=== PATIENT | male | born 1935 ===

== ENCOUNTER 2019-07-19 14:19 | Inpatient (IN) ==
[2019-07-19] MEDS ORDERED: cefTRIAXone 1,000 MG in Water for inj. (sterile) 10 ML IVP ONE (14:35)
[2019-07-19] MEDS ORDERED: Isovue-370 500 ML BOTTLE IVP ONE (14:35)
[2019-07-19] MEDS ORDERED: 0.9 % Sodium Chloride 1,000 ML IVC ONE (14:36)
[2019-07-19 15:15] LABS: VBG HCO3 25 mEq/L (21-27); VBG PCO2 46 mmHg (41-51); VBG PH 7.33 pH Units (7.32-7.42); VBG PO2 43 mmHg (25-50)
[2019-07-19 15:32] LABS: Basophils # 0.1 K/mcL (0.0-0.2); Basophils % 0.3 %; Eosinophils % 0.1 %; Hematocrit 33.4 % (37.5-50.1); Hemoglobin 10.9 g/dL (12.9-16.9); Immature Granulocytes % 0.6 % (0-4); Lymphocytes # 1.8 K/mcL (0.6-4.6); Mean Corpuscular HGB Conc 32.6 g/dL (31.6-35.5); Mean Corpuscular Hemoglobin 31.1 pg (28.0-33.3); Mean Corpuscular Volume 95.4 fL (83.0-100.0); Mean Platelet Volume 10.1 fL (9.4-12.4); Monocytes # 1.3 K/mcL (0.0-1.3); Monocytes % 5.1 %; Neutrophils # 21.8 K/mcL (1.6-8.9); Platelet Count 376 K/mcL (140-400); Red Cell Distribution Width 13.2 % (11.5-14.5); Segmented Neutrophils % 86.9 %; White Blood Count 25.1 K/mcL (4.3-11.1)
[2019-07-19 15:36] LABS: Platelet Estimate Normal (Normal)
[2019-07-19 15:42] LABS: BUN/Creatinine Ratio 32 (6-26); Blood Urea Nitrogen 37 mg/dL (8-23); Calcium 8.7 mg/dL (8.6-10.3); Carbon Dioxide 23 mEq/L (23-29); Chloride 102 mEq/L (98-107); Glucose 176 mg/dL (70-105); Osmolality,Calculated 305 (280-300); Potassium 3.7 mEq/L (3.5-5.1); Sodium 141 mEq/L (136-145); eGFR For African Americans > 60 (> 60); eGFR For Non-African Americans > 60 (> 60)
[2019-07-19 16:10] LABS: C-Reactive Protein 152 mg/L (Less than 10)
[2019-07-19] MEDS ORDERED: 0.9 % Sodium Chloride 500 ML IVC ONE (17:16)
[2019-07-19] MEDS ORDERED: Clindamycin 900 MG/50 ML 900 MG/50 ML IV.SOLN IVPB ONE (17:20)
[2019-07-19] MEDS ORDERED: Naloxone 0.4 MG/ML INJ IVP PRN ×2 (18:01→20:43)
[2019-07-19] MEDS ORDERED: Dextrose Gel 15 GM/37.5 ML TUBE PO PRN ×4 (18:09→20:43)
[2019-07-19] MEDS ORDERED: D5% in Water 1,000 ML IVC PRN ×2 (18:09→20:43)
[2019-07-19] MEDS ORDERED: *HR* Dextrose 50 % in Water (Syg) 50 ML SYRINGE IVP PRN ×2 (18:09→20:43)
[2019-07-19] MEDS ORDERED: *HR* Metoprolol 5 MG/5 ML VIAL IVP PRN (18:14)
[2019-07-19] MEDS ORDERED: 0.9 % Sodium Chloride 1,000 ML IVC SCH (18:15)
[2019-07-19] MEDS ORDERED: *HR* Propofol 200 MG/20 ML VIAL IVP ONE (19:13)
[2019-07-19] MEDS ORDERED: Lidocaine -MPF 2% 2 ML VIAL ONE (19:30)
[2019-07-19 20:20] LABS: Estimated Average Glucose 143 mg/dl
[2019-07-19] MEDS ORDERED: Insulin LISPRO 300 UNITS/3 ML VIAL SQ SCH (21:00)
[2019-07-19] MEDS: Insulin LISPRO 300 UNITS/3 ML VIAL SQ SCH (22:39)
[2019-07-19] MEDS: 0.9 % Sodium Chloride 1,000 ML IVC SCH (23:50)
[2019-07-19] MEDS: Clindamycin 600 MG/50 ML 600 MG/50 ML IV.SOLN IVPB SCH (23:51)
[2019-07-20] MEDS ORDERED: Piperacillin/Tazobactam 3.375 GM in 0.9 % Sodium Chloride Mini Bag 100 ML IVPB SCH
[2019-07-20] MEDS ORDERED: Clindamycin 600 MG/50 ML 600 MG/50 ML IV.SOLN IVPB SCH
[2019-07-20] MEDS: Piperacillin/Tazobactam 3.375 GM in 0.9 % Sodium Chloride Mini Bag 100 ML IVPB SCH ×3 (01:05→18:30)
[2019-07-20] MEDS: *HR* OxyCODONE Immed Rel 5 MG TABLET PO PRN (04:52)
[2019-07-20] MEDS ORDERED: *HR* Heparin 5,000 UNIT/ML VIAL SQ SCH (06:00)
[2019-07-20 06:08] LABS: Basophils # 0.1 K/mcL (0.0-0.2); Basophils % 0.3 %; Eosinophils # 0.1 K/mcL (0.0-0.6); Eosinophils % 0.3 %; Hematocrit 29.3 % (37.5-50.1); Hemoglobin 9.4 g/dL (12.9-16.9); Immature Granulocytes % 0.8 % (0-4); Lymphocytes # 1.1 K/mcL (0.6-4.6); Lymphocytes % 6.2 %; Mean Corpuscular HGB Conc 32.1 g/dL (31.6-35.5); Mean Corpuscular Hemoglobin 30.7 pg (28.0-33.3); Mean Corpuscular Volume 95.8 fL (83.0-100.0); Mean Platelet Volume 10.1 fL (9.4-12.4); Monocytes # 0.7 K/mcL (0.0-1.3); Monocytes % 3.9 %; Neutrophils # 16.1 K/mcL (1.6-8.9); Platelet Count 326 K/mcL (140-400); Red Blood Count 3.06 M/mcL (4.19-5.50); Red Cell Distribution Width 13.2 % (11.5-14.5); Segmented Neutrophils % 88.5 %; White Blood Count 18.2 K/mcL (4.3-11.1)
[2019-07-20 06:24] LABS: BUN/Creatinine Ratio 31 (6-26); Blood Urea Nitrogen 27 mg/dL (8-23); Calcium 7.9 mg/dL (8.6-10.3); Carbon Dioxide 24 mEq/L (23-29); Chloride 107 mEq/L (98-107); Glucose 113 mg/dL (70-105); Magnesium 1.5 mg/dL (1.6-2.6); Osmolality,Calculated 296 (280-300); Phosphorous 1.6 mg/dL (2.7-4.5); Potassium 3.5 mEq/L (3.5-5.1); Sodium 140 mEq/L (136-145); eGFR For African Americans > 60 (> 60); eGFR For Non-African Americans > 60 (> 60)
[2019-07-20] MEDS ORDERED: Insulin LISPRO 300 UNITS/3 ML VIAL SQ SCH (07:30)
[2019-07-20] MEDS: *HR* Heparin 5,000 UNIT/ML VIAL SQ SCH ×2 (08:05→18:27)
[2019-07-20] MEDS: Insulin LISPRO 300 UNITS/3 ML VIAL SQ SCH ×4 (08:05→20:27)
[2019-07-20] MEDS: Clindamycin 600 MG/50 ML 600 MG/50 ML IV.SOLN IVPB SCH ×2 (08:07→18:27)
[2019-07-20] MEDS: DilTIAZem CD (24hr) 120 MG CAP.ER.24H PO SCH (16:01)
[2019-07-20] MEDS: Budesonide/Formoterol 80/4.5 1 PUFF INH IH SCH (19:41)
[2019-07-21] MEDS: Clindamycin 600 MG/50 ML 600 MG/50 ML IV.SOLN IVPB SCH ×2 (01:24→10:37)
[2019-07-21] MEDS: Piperacillin/Tazobactam 3.375 GM in 0.9 % Sodium Chloride Mini Bag 100 ML IVPB SCH ×4 (01:24→23:31)
[2019-07-21] MEDS: 0.9 % Sodium Chloride 1,000 ML IVC SCH ×3 (01:25→22:49)
[2019-07-21 06:15] LABS: Basophils # 0.1 K/mcL (0.0-0.2); Basophils % 0.3 %; Eosinophils # 0.1 K/mcL (0.0-0.6); Eosinophils % 0.7 %; Hematocrit 27.5 % (37.5-50.1); Hemoglobin 8.9 g/dL (12.9-16.9); Immature Granulocytes % 0.8 % (0-4); Lymphocytes # 1.6 K/mcL (0.6-4.6); Lymphocytes % 8.9 %; Mean Corpuscular HGB Conc 32.4 g/dL (31.6-35.5); Mean Corpuscular Hemoglobin 30.8 pg (28.0-33.3); Mean Corpuscular Volume 95.2 fL (83.0-100.0); Monocytes # 0.8 K/mcL (0.0-1.3); Monocytes % 4.6 %; Neutrophils # 15.1 K/mcL (1.6-8.9); Platelet Count 341 K/mcL (140-400); Red Blood Count 2.89 M/mcL (4.19-5.50); Red Cell Distribution Width 13.2 % (11.5-14.5); Segmented Neutrophils % 84.7 %; White Blood Count 17.9 K/mcL (4.3-11.1)
[2019-07-21] MEDS: *HR* Heparin 5,000 UNIT/ML VIAL SQ SCH ×2 (07:19→19:43)
[2019-07-21] MEDS: Budesonide/Formoterol 80/4.5 1 PUFF INH IH SCH ×2 (08:11→22:25)
[2019-07-21] MEDS: Tiotropium 18 MCG inhalation IH SCH (08:12)
[2019-07-21] MEDS ORDERED: DILTIAZEM HCL 360 MG PO SCH (09:00)
[2019-07-21 09:34] LABS: % Iron Saturation 11 % (20-55); BUN/Creatinine Ratio 23 (6-26); Blood Urea Nitrogen 17 mg/dL (8-23); Calcium 7.8 mg/dL (8.6-10.3); Carbon Dioxide 21 mEq/L (23-29); Chloride 107 mEq/L (98-107); Glucose 85 mg/dL (70-105); Iron 20 mcg/dL (65-175); Osmolality,Calculated 283 (280-300); Potassium 3.2 mEq/L (3.5-5.1); Sodium 136 mEq/L (136-145); Transferrin 135 mg/dL (203-362); eGFR For African Americans > 60 (> 60); eGFR For Non-African Americans > 60 (> 60)
[2019-07-21 09:38] LABS: Ferritin 239 ng/mL (20-250)
[2019-07-21] MEDS: DilTIAZem CD (24hr) 120 MG CAP.ER.24H PO SCH (10:37)
[2019-07-21] MEDS: Insulin LISPRO 300 UNITS/3 ML VIAL SQ SCH ×4 (10:39→21:05)
[2019-07-21 11:17] LABS: INR 1.4; Prothrombin Time 16.3 Seconds (9.4-12.1)
[2019-07-21 11:19] LABS: Activated Partial Thrombo Time 33.4 Seconds (26.0-36.0)
[2019-07-21] MEDS ORDERED: *HR* Heparin 10,000 UNIT/10 ML VIAL ONE (13:51)
[2019-07-21] MEDS ORDERED: Isovue-300 150 ML INFUS..BTL ONE ×2 (13:52→13:56)
[2019-07-21] MEDS ORDERED: 0.9 % Sodium Chloride 1,000 ML ONE ×2 (13:52→15:25)
[2019-07-21] MEDS ORDERED: *HR* FentaNYL (PF) 100 MCG/2 ML VIAL ONE (15:23)
[2019-07-21] MEDS ORDERED: *HR* Midazolam HCl 2 MG/2 ML VIAL ONE (15:24)
[2019-07-21] MEDS ORDERED: Heparin 1,000 UNITS/500 mL 500 ML ONE ×2 (16:06→16:39)
[2019-07-21] MEDS ORDERED: Ondansetron 4 MG/2 ML VIAL IVP PRN (17:14)
[2019-07-21] MEDS ORDERED: Acetaminophen 325 MG TABLET PO PRN (17:14)
[2019-07-21] MEDS ORDERED: *HR* Atropine Sulfate 1 MG/10 ML SYRINGE ONE (19:50)
[2019-07-22] MEDS: *HR* Heparin 5,000 UNIT/ML VIAL SQ SCH ×2 (05:20→18:00)
[2019-07-22] MEDS: Piperacillin/Tazobactam 3.375 GM in 0.9 % Sodium Chloride Mini Bag 100 ML IVPB SCH ×3 (08:09→23:56)
[2019-07-22] MEDS: DilTIAZem CD (24hr) 120 MG CAP.ER.24H PO SCH (08:12)
[2019-07-22] MEDS: Insulin LISPRO 300 UNITS/3 ML VIAL SQ SCH ×4 (09:10→20:25)
[2019-07-22] MEDS: Budesonide/Formoterol 80/4.5 1 PUFF INH IH SCH ×2 (10:16→20:18)
[2019-07-22] MEDS: Tiotropium 18 MCG inhalation IH SCH (10:16)
[2019-07-22 10:33] LABS: Hematocrit 30.7 % (37.5-50.1); Hemoglobin 10.1 g/dL (12.9-16.9); Mean Corpuscular HGB Conc 32.9 g/dL (31.6-35.5); Mean Corpuscular Hemoglobin 30.8 pg (28.0-33.3); Mean Corpuscular Volume 93.6 fL (83.0-100.0); Mean Platelet Volume 10.1 fL (9.4-12.4); Platelet Count 371 K/mcL (140-400); Red Blood Count 3.28 M/mcL (4.19-5.50); Red Cell Distribution Width 13.1 % (11.5-14.5); White Blood Count 14.2 K/mcL (4.3-11.1)
[2019-07-22 10:51] LABS: Blood Urea Nitrogen 10 mg/dL (8-23); Calcium 7.5 mg/dL (8.6-10.3); Carbon Dioxide 23 mEq/L (23-29); Chloride 104 mEq/L (98-107); Glucose 135 mg/dL (70-105); Osmolality,Calculated 283 (280-300); Potassium 3.2 mEq/L (3.5-5.1); Sodium 136 mEq/L (136-145)
[2019-07-22 10:58] LABS: BUN/Creatinine Ratio 14 (6-26); eGFR For African Americans > 60 (> 60); eGFR For Non-African Americans > 60 (> 60)
[2019-07-22 11:05] LABS: Lymphocytes # 1.7 K/mcL (0.6-4.6); Monocytes # 0.6 K/mcL (0.0-1.3); Neutrophils # 11.9 K/mcL (1.6-8.9)
[2019-07-22 11:06] LABS: Platelet Estimate Normal (Normal); Reactive Lymphocytes Present (Not Present)
[2019-07-22] MEDS: 0.9 % Sodium Chloride 1,000 ML IVC SCH ×5 (17:30→18:27)
[2019-07-23 05:35] LABS: Basophils # 0.1 K/mcL (0.0-0.2); Basophils % 0.5 %; Eosinophils # 0.2 K/mcL (0.0-0.6); Eosinophils % 1.9 %; Hematocrit 29.3 % (37.5-50.1); Hemoglobin 9.5 g/dL (12.9-16.9); Immature Granulocytes % 1.6 % (0-4); Lymphocytes # 1.8 K/mcL (0.6-4.6); Mean Corpuscular HGB Conc 32.4 g/dL (31.6-35.5); Mean Corpuscular Volume 92.4 fL (83.0-100.0); Mean Platelet Volume 10.2 fL (9.4-12.4); Monocytes # 0.8 K/mcL (0.0-1.3); Monocytes % 6.2 %; Neutrophils # 9.5 K/mcL (1.6-8.9); Platelet Count 336 K/mcL (140-400); Red Blood Count 3.17 M/mcL (4.19-5.50); Segmented Neutrophils % 75.8 %; White Blood Count 12.5 K/mcL (4.3-11.1)
[2019-07-23 05:41] LABS: BUN/Creatinine Ratio 12 (6-26); Blood Urea Nitrogen 8 mg/dL (8-23); Calcium 7.7 mg/dL (8.6-10.3); Carbon Dioxide 21 mEq/L (23-29); Chloride 106 mEq/L (98-107); Glucose 106 mg/dL (70-105); Osmolality,Calculated 283 (280-300); Potassium 3.7 mEq/L (3.5-5.1); Sodium 137 mEq/L (136-145); eGFR For African Americans > 60 (> 60); eGFR For Non-African Americans > 60 (> 60)
[2019-07-23] MEDS: *HR* Heparin 5,000 UNIT/ML VIAL SQ SCH ×2 (05:50→17:46)
[2019-07-23] MEDS: 0.9 % Sodium Chloride 1,000 ML IVC SCH (05:51)
[2019-07-23 05:54] LABS: Large Platelets Present (Not Present); Platelet Estimate Normal (Normal)
[2019-07-23] MEDS: *HR* OxyCODONE Immed Rel 5 MG TABLET PO PRN (09:02)
[2019-07-23] MEDS: Piperacillin/Tazobactam 3.375 GM in 0.9 % Sodium Chloride Mini Bag 100 ML IVPB SCH ×3 (09:03→23:24)
[2019-07-23] MEDS: Insulin LISPRO 300 UNITS/3 ML VIAL SQ SCH ×4 (09:03→21:05)
[2019-07-23] MEDS: DilTIAZem CD (24hr) 240 MG CAP.ER.24H PO SCH (09:03)
[2019-07-23] MEDS: Budesonide/Formoterol 80/4.5 1 PUFF INH IH SCH ×2 (10:04→20:02)
[2019-07-23] MEDS: Tiotropium 18 MCG inhalation IH SCH (10:05)
[2019-07-23] MEDS ORDERED: Vancomycin 1,000 MG VIAL ONE (17:08)
[2019-07-24] MEDS: *HR* Heparin 5,000 UNIT/ML VIAL SQ SCH ×2 (05:38→16:41)
[2019-07-24] MEDS: Insulin LISPRO 300 UNITS/3 ML VIAL SQ SCH ×4 (07:16→20:48)
[2019-07-24] MEDS: DilTIAZem CD (24hr) 240 MG CAP.ER.24H PO SCH (07:16)
[2019-07-24] MEDS: Piperacillin/Tazobactam 3.375 GM in 0.9 % Sodium Chloride Mini Bag 100 ML IVPB SCH ×2 (07:16→16:40)
[2019-07-24] MEDS: Budesonide/Formoterol 80/4.5 1 PUFF INH IH SCH ×2 (07:50→20:10)
[2019-07-24] MEDS: Tiotropium 18 MCG inhalation IH SCH (07:52)
[2019-07-24] MEDS ORDERED: Lidocaine 1% 20 ML MDV ONE (10:18)
[2019-07-24] MEDS ORDERED: *HR* Propofol 200 MG/20 ML VIAL IVP ONE ×2 (10:48→10:56)
[2019-07-24] MEDS ORDERED: *HR* PHENYLEPHRINE 1,000 MCG/10 ML SYRINGE IVP ONE (11:08)
[2019-07-24] MEDS ORDERED: Dexamethasone 4 MG/ML VIAL ONE (11:22)
[2019-07-24] MEDS ORDERED: Ondansetron 4 MG/2 ML VIAL ONE (11:22)
[2019-07-24] MEDS: *HR* OxyCODONE Immed Rel 5 MG TABLET PO PRN ×2 (13:26→22:51)
[2019-07-25] MEDS: Piperacillin/Tazobactam 3.375 GM in 0.9 % Sodium Chloride Mini Bag 100 ML IVPB SCH ×2 (00:41→08:14)
[2019-07-25] MEDS: *HR* Heparin 5,000 UNIT/ML VIAL SQ SCH ×2 (05:38→19:02)
[2019-07-25 07:36] LABS: Hematocrit 31.1 % (37.5-50.1); Mean Corpuscular HGB Conc 32.2 g/dL (31.6-35.5); Mean Corpuscular Hemoglobin 30.4 pg (28.0-33.3); Mean Corpuscular Volume 94.5 fL (83.0-100.0); Red Blood Count 3.29 M/mcL (4.19-5.50)
[2019-07-25 07:37] LABS: Basophils % 0.2 %; Immature Granulocytes % 1.6 % (0-4); Lymphocytes % 6.9 %; Mean Platelet Volume 10.2 fL (9.4-12.4); Monocytes % 4.8 %; Neutrophils # 18.1 K/mcL (1.6-8.9); Platelet Count 414 K/mcL (140-400); Red Cell Distribution Width 13.2 % (11.5-14.5); Segmented Neutrophils % 86.5 %
[2019-07-25 07:39] LABS: Lymphocytes # 1.4 K/mcL (0.6-4.6); White Blood Count 20.9 K/mcL (4.3-11.1)
[2019-07-25] MEDS: Insulin LISPRO 300 UNITS/3 ML VIAL SQ SCH ×4 (07:47→20:39)
[2019-07-25 07:53] LABS: BUN/Creatinine Ratio 14 (6-26); Blood Urea Nitrogen 18 mg/dL (8-23); Calcium 8.4 mg/dL (8.6-10.3); Carbon Dioxide 25 mEq/L (23-29); Chloride 102 mEq/L (98-107); Glucose 133 mg/dL (70-105); Osmolality,Calculated 286 (280-300); Potassium 4.1 mEq/L (3.5-5.1); Sodium 136 mEq/L (136-145); eGFR For African Americans > 60 (> 60); eGFR For Non-African Americans 55 (> 60)
[2019-07-25] MEDS: DilTIAZem CD (24hr) 240 MG CAP.ER.24H PO SCH (08:14)
[2019-07-25] MEDS: 0.9 % Sodium Chloride 1,000 ML IVC SCH ×2 (09:13→23:38)
[2019-07-25] MEDS: Tiotropium 18 MCG inhalation IH SCH (09:34)
[2019-07-25] MEDS: Budesonide/Formoterol 80/4.5 1 PUFF INH IH SCH ×2 (09:34→20:08)
[2019-07-25] MEDS: *HR* OxyCODONE Immed Rel 5 MG TABLET PO PRN (13:01)
[2019-07-26] MEDS: *HR* Heparin 5,000 UNIT/ML VIAL SQ SCH ×2 (05:48→16:24)
[2019-07-26 07:19] LABS: Hematocrit 29.5 % (37.5-50.1); Hemoglobin 9.5 g/dL (12.9-16.9); Mean Corpuscular HGB Conc 32.2 g/dL (31.6-35.5); Mean Corpuscular Hemoglobin 30.5 pg (28.0-33.3); Mean Corpuscular Volume 94.9 fL (83.0-100.0); Mean Platelet Volume 9.9 fL (9.4-12.4); Platelet Count 400 K/mcL (140-400); Red Blood Count 3.11 M/mcL (4.19-5.50); Red Cell Distribution Width 13.4 % (11.5-14.5); White Blood Count 15.8 K/mcL (4.3-11.1)
[2019-07-26] MEDS: Budesonide/Formoterol 80/4.5 1 PUFF INH IH SCH ×2 (07:35→20:09)
[2019-07-26 07:37] LABS: Calcium 8.6 mg/dL (8.6-10.3); Potassium 3.8 mEq/L (3.5-5.1)
[2019-07-26] MEDS: *HR* OxyCODONE Immed Rel 5 MG TABLET PO PRN ×2 (07:45→16:24)
[2019-07-26] MEDS: DilTIAZem CD (24hr) 240 MG CAP.ER.24H PO SCH (07:45)
[2019-07-26] MEDS: Insulin LISPRO 300 UNITS/3 ML VIAL SQ SCH ×4 (07:45→20:36)
[2019-07-26] MEDS ORDERED: Aminoglycoside Consult 1 EACH MC ONE (09:07)
[2019-07-26] MEDS: Tiotropium 18 MCG inhalation IH SCH (10:48)
[2019-07-26] MEDS ORDERED: 0.9 % Sodium Chloride 1,000 ML ONE (13:15)
[2019-07-26] MEDS: cephALEXin 500 MG CAPSULE PO SCH ×2 (13:19→20:11)
[2019-07-26] MEDS: Doxycycline 100 MG CAPSULE PO SCH ×2 (13:19→20:10)
[2019-07-26] MEDS: 0.9 % Sodium Chloride 1,000 ML IVC SCH (13:19)
[2019-07-26 13:44] LABS: Bilirubin,Urine Negative (Negative); Blood,Urine Negative (Negative); Clarity,Urine Clear (Clear); Color,Urine Yellow (Yellow); Glucose,Urine (UA) Normal (Normal); Ketones,Urine Negative (Negative); Leukocyte Esterase,Urine Negative (Negative); Nitrite,Urine Negative (Negative); PH,Urine 6.5 pH Units (5.0-8.0); Protein,Urine Negative (Neg-Trace); Urobilinogen,Urine Normal (Normal)
[2019-07-27 02:42] LABS: Potassium 3.9 mEq/L (3.5-5.1)
[2019-07-27] MEDS: *HR* Metoprolol 5 MG/5 ML VIAL IVP PRN ×2 (04:09→21:48)
[2019-07-27] MEDS: *HR* Heparin 5,000 UNIT/ML VIAL SQ SCH (05:27)
[2019-07-27] MEDS: Tiotropium 18 MCG inhalation IH SCH (07:32)
[2019-07-27] MEDS: Budesonide/Formoterol 80/4.5 1 PUFF INH IH SCH ×2 (07:32→19:59)
[2019-07-27] MEDS: Insulin LISPRO 300 UNITS/3 ML VIAL SQ SCH ×4 (09:30→21:00)
[2019-07-27] MEDS: DilTIAZem CD (24hr) 240 MG CAP.ER.24H PO SCH (10:48)
[2019-07-27] MEDS: cephALEXin 500 MG CAPSULE PO SCH ×2 (10:48→21:50)
[2019-07-27] MEDS: Doxycycline 100 MG CAPSULE PO SCH ×2 (10:48→21:41)
[2019-07-27] MEDS: 0.9 % Sodium Chloride 1,000 ML IVC SCH ×2 (13:00→21:51)
[2019-07-27] MEDS ORDERED: Pantoprazole 80 MG in 0.9 % Sodium Chloride 50 ML IVPB ONE (13:15)
[2019-07-27] MEDS ORDERED: 0.9 % Sodium Chloride 1,000 ML IVC ONE (13:18)
[2019-07-27 14:04] LABS: Basophils % 0.2 %; Eosinophils % 0.1 %; Hematocrit 31.1 % (37.5-50.1); Hemoglobin 10.2 g/dL (12.9-16.9); Lymphocytes # 1.6 K/mcL (0.6-4.6); Lymphocytes % 9.6 %; Mean Corpuscular HGB Conc 32.8 g/dL (31.6-35.5); Mean Corpuscular Hemoglobin 31.1 pg (28.0-33.3); Mean Corpuscular Volume 94.8 fL (83.0-100.0); Mean Platelet Volume 9.9 fL (9.4-12.4); Monocytes # 0.7 K/mcL (0.0-1.3); Monocytes % 4.2 %; Neutrophils # 13.8 K/mcL (1.6-8.9); Platelet Count 424 K/mcL (140-400); Red Blood Count 3.28 M/mcL (4.19-5.50); Red Cell Distribution Width 13.3 % (11.5-14.5); Segmented Neutrophils % 84.9 %; White Blood Count 16.3 K/mcL (4.3-11.1)
[2019-07-27] MEDS: Pantoprazole 40 MG VIAL IVP SCH (18:43)
[2019-07-27 20:32] LABS: Hematocrit 29.6 % (37.5-50.1); Hemoglobin 9.5 g/dL (12.9-16.9)
[2019-07-28 02:48] LABS: Basophils # 0.1 K/mcL (0.0-0.2); Basophils % 0.3 %; Eosinophils # 0.1 K/mcL (0.0-0.6); Eosinophils % 0.5 %; Hematocrit 26.4 % (37.5-50.1); Hemoglobin 8.6 g/dL (12.9-16.9); Immature Granulocytes % 0.6 % (0-4); Lymphocytes # 2.2 K/mcL (0.6-4.6); Lymphocytes % 14.1 %; Mean Corpuscular HGB Conc 32.6 g/dL (31.6-35.5); Mean Corpuscular Hemoglobin 30.9 pg (28.0-33.3); Mean Platelet Volume 10.2 fL (9.4-12.4); Monocytes # 0.8 K/mcL (0.0-1.3); Monocytes % 5.4 %; Neutrophils # 12.2 K/mcL (1.6-8.9); Platelet Count 370 K/mcL (140-400); Red Blood Count 2.78 M/mcL (4.19-5.50); Red Cell Distribution Width 13.6 % (11.5-14.5); Segmented Neutrophils % 79.1 %; White Blood Count 15.5 K/mcL (4.3-11.1)
[2019-07-28 03:11] LABS: Calcium 8.3 mg/dL (8.6-10.3); Magnesium 1.3 mg/dL (1.6-2.6); Phosphorous 3.4 mg/dL (2.7-4.5); Potassium 3.4 mEq/L (3.5-5.1)
[2019-07-28] MEDS: Pantoprazole 40 MG VIAL IVP SCH ×2 (04:44→17:36)
[2019-07-28] MEDS: 0.9 % Sodium Chloride 1,000 ML IVC SCH ×4 (04:44→20:10)
[2019-07-28] MEDS: *HR* Metoprolol 5 MG/5 ML VIAL IVP PRN (06:22)
[2019-07-28] MEDS: Tiotropium 18 MCG inhalation IH SCH (07:47)
[2019-07-28] MEDS: Budesonide/Formoterol 80/4.5 1 PUFF INH IH SCH ×2 (07:47→20:00)
[2019-07-28] MEDS: Insulin LISPRO 300 UNITS/3 ML VIAL SQ SCH ×4 (09:18→20:37)
[2019-07-28] MEDS: Doxycycline 100 MG CAPSULE PO SCH ×2 (09:21→20:10)
[2019-07-28] MEDS: cephALEXin 500 MG CAPSULE PO SCH (09:22)
[2019-07-28] MEDS: DilTIAZem CD (24hr) 240 MG CAP.ER.24H PO SCH (09:22)
[2019-07-28] MEDS: Potassium Chloride Elixir 20 MEQ/15 ML UDC PO SCH ×2 (11:15→13:48)
[2019-07-29] MEDS: 0.9 % Sodium Chloride 1,000 ML IVC SCH ×2 (05:28→17:25)
[2019-07-29] MEDS: Pantoprazole 40 MG VIAL IVP SCH ×2 (05:28→17:15)
[2019-07-29 06:01] LABS: Basophils # 0.1 K/mcL (0.0-0.2); Basophils % 0.4 %; Eosinophils # 0.2 K/mcL (0.0-0.6); Eosinophils % 1.8 %; Hematocrit 25.9 % (37.5-50.1); Hemoglobin 8.1 g/dL (12.9-16.9); Immature Granulocytes % 0.7 % (0-4); Lymphocytes # 1.8 K/mcL (0.6-4.6); Lymphocytes % 14.9 %; Mean Corpuscular HGB Conc 31.3 g/dL (31.6-35.5); Mean Corpuscular Hemoglobin 29.9 pg (28.0-33.3); Mean Corpuscular Volume 95.6 fL (83.0-100.0); Mean Platelet Volume 9.9 fL (9.4-12.4); Monocytes # 0.7 K/mcL (0.0-1.3); Neutrophils # 9.1 K/mcL (1.6-8.9); Platelet Count 369 K/mcL (140-400); Red Blood Count 2.71 M/mcL (4.19-5.50); Red Cell Distribution Width 13.7 % (11.5-14.5); Segmented Neutrophils % 76.2 %
[2019-07-29 06:21] LABS: BUN/Creatinine Ratio 17 (6-26); Blood Urea Nitrogen 22 mg/dL (8-23); Carbon Dioxide 27 mEq/L (23-29); Chloride 107 mEq/L (98-107); Glucose 106 mg/dL (70-105); Magnesium 1.5 mg/dL (1.6-2.6); Osmolality,Calculated 294 (280-300); Phosphorous 2.3 mg/dL (2.7-4.5); Potassium 3.6 mEq/L (3.5-5.1); Sodium 140 mEq/L (136-145); eGFR For African Americans > 60 (> 60); eGFR For Non-African Americans 55 (> 60)
[2019-07-29] MEDS: Insulin LISPRO 300 UNITS/3 ML VIAL SQ SCH ×4 (07:41→20:57)
[2019-07-29] MEDS: DilTIAZem CD (24hr) 240 MG CAP.ER.24H PO SCH (08:10)
[2019-07-29] MEDS: Doxycycline 100 MG CAPSULE PO SCH ×2 (08:10→20:59)
[2019-07-29] MEDS: Budesonide/Formoterol 80/4.5 1 PUFF INH IH SCH ×2 (10:28→21:36)
[2019-07-29] MEDS: Tiotropium 18 MCG inhalation IH SCH (10:28)
[2019-07-29] MEDS ORDERED: *HR* Propofol 200 MG/20 ML VIAL IVP ONE (12:34)
[2019-07-29] MEDS ORDERED: Lidocaine -MPF 2% 2 ML VIAL ONE (12:34)
[2019-07-29] MEDS ORDERED: EPHEDrine 50 MG/ML VIAL ONE (12:34)
[2019-07-29] MEDS ORDERED: 0.9 % Sodium Chloride 1,000 ML IVC SCH (12:45)
[2019-07-30] MEDS: 0.9 % Sodium Chloride 1,000 ML IVC SCH (02:28)
[2019-07-30] MEDS: Pantoprazole 40 MG VIAL IVP SCH (06:01)
[2019-07-30] MEDS: Insulin LISPRO 300 UNITS/3 ML VIAL SQ SCH ×3 (07:15→12:08)
[2019-07-30] MEDS: Budesonide/Formoterol 80/4.5 1 PUFF INH IH SCH (08:10)
[2019-07-30] MEDS: Tiotropium 18 MCG inhalation IH SCH (08:10)
[2019-07-30] MEDS: Doxycycline 100 MG CAPSULE PO SCH (08:29)
[2019-07-30] MEDS: DilTIAZem CD (24hr) 240 MG CAP.ER.24H PO SCH (08:29)
[2019-07-30 10:00] LABS: Basophils # 0.1 K/mcL (0.0-0.2); Basophils % 0.4 %; Eosinophils # 0.1 K/mcL (0.0-0.6); Eosinophils % 0.8 %; Hemoglobin 8.2 g/dL (12.9-16.9); Immature Granulocytes % 0.4 % (0-4); Lymphocytes # 1.8 K/mcL (0.6-4.6); Lymphocytes % 13.2 %; Mean Corpuscular HGB Conc 31.5 g/dL (31.6-35.5); Mean Corpuscular Hemoglobin 30.4 pg (28.0-33.3); Mean Corpuscular Volume 96.3 fL (83.0-100.0); Mean Platelet Volume 9.9 fL (9.4-12.4); Monocytes # 0.8 K/mcL (0.0-1.3); Monocytes % 5.4 %; Platelet Count 340 K/mcL (140-400); Red Cell Distribution Width 13.9 % (11.5-14.5); Segmented Neutrophils % 79.8 %; White Blood Count 13.8 K/mcL (4.3-11.1)
[2019-07-30 10:17] LABS: BUN/Creatinine Ratio 15 (6-26); Blood Urea Nitrogen 17 mg/dL (8-23); Calcium 7.7 mg/dL (8.6-10.3); Carbon Dioxide 24 mEq/L (23-29); Chloride 108 mEq/L (98-107); Glucose 166 mg/dL (70-105); Magnesium 1.7 mg/dL (1.6-2.6); Osmolality,Calculated 291 (280-300); Phosphorous 1.9 mg/dL (2.7-4.5); Potassium 3.4 mEq/L (3.5-5.1); Sodium 138 mEq/L (136-145); eGFR For African Americans > 60 (> 60); eGFR For Non-African Americans 60 (> 60)
[2019-07-30 14:07] VITALS: BP 115/62
== END 2019-07-30 14:42 | DRG 853 ==
LOC: 3NENU 14:19 → EMEROOARM 14:19 → 3NENU 18:13 → SUATTDRO 18:14 → 3NENU 18:40 → 2NNU 07-21 17:03 → 3ANU 07-28 16:45
PROVIDERS: ADMIT Pharmacist; ATTEND Internal Medicine

== ENCOUNTER 2019-09-23 11:06 | Inpatient (IN) ==
[2019-09-23] MEDS ORDERED: Isovue-370 500 ML BOTTLE IVP ONE ×2 (11:24→11:28)
[2019-09-23 11:45] LABS: Basophils # 0.1 K/mcL (0.0-0.2); Basophils % 0.3 %; Eosinophils # 0.1 K/mcL (0.0-0.6); Eosinophils % 0.3 %; Hematocrit 35.7 % (37.5-50.1); Hemoglobin 11.8 g/dL (12.9-16.9); Immature Granulocytes % 0.5 % (0-4); Lymphocytes # 1.9 K/mcL (0.6-4.6); Lymphocytes % 9.5 %; Mean Corpuscular HGB Conc 33.1 g/dL (31.6-35.5); Mean Corpuscular Hemoglobin 30.4 pg (28.0-33.3); Mean Platelet Volume 10.7 fL (9.4-12.4); Monocytes # 0.7 K/mcL (0.0-1.3); Monocytes % 3.5 %; Neutrophils # 16.7 K/mcL (1.6-8.9); Platelet Count 258 K/mcL (140-400); Red Blood Count 3.88 M/mcL (4.19-5.50); Red Cell Distribution Width 14.1 % (11.5-14.5); Segmented Neutrophils % 85.9 %; White Blood Count 19.4 K/mcL (4.3-11.1)
[2019-09-23] MEDS ORDERED: Ondansetron 4 MG/2 ML VIAL IVP ONE (11:45)
[2019-09-23] MEDS ORDERED: 0.9 % Sodium Chloride 1,000 ML IVC ONE (11:45)
[2019-09-23] MEDS ORDERED: Morphine Sulfate 2 MG/ML SYRINGE IVP ONE (11:46)
[2019-09-23 12:14] LABS: Alanine Aminotransferase 12 Units/L (7-52); Albumin 3.8 g/dL (3.5-5.7); Albumin/Globulin Ratio 1.3 (1.1-2.2); Alkaline Phosphatase 81 Units/L (34-104); Aspartate Amino Transferase 14 Units/L (13-39); BUN/Creatinine Ratio 24 (6-26); Bilirubin,Direct 0.1 mg/dL (0.0-0.2); Bilirubin,Indirect 0.7 mg/dL (0.0-1.0); Bilirubin,Total 0.8 mg/dL (0.3-1.0); Blood Urea Nitrogen 27 mg/dL (8-23); Calcium 9.1 mg/dL (8.6-10.3); Carbon Dioxide 20 mEq/L (23-29); Chloride 106 mEq/L (98-107); Glucose 209 mg/dL (70-105); Magnesium 1.4 mg/dL (1.6-2.6); Osmolality,Calculated 299 (280-300); Potassium 3.7 mEq/L (3.5-5.1); Sodium 139 mEq/L (136-145); Total Protein 6.8 g/dL (6.4-8.9); Troponin I < 0.03 ng/mL (< 0.04); eGFR For African Americans > 60 (> 60); eGFR For Non-African Americans > 60 (> 60)
[2019-09-23 13:09] LABS: Bilirubin,Urine Small (Negative); Blood,Urine Negative (Negative); Clarity,Urine Clear (Clear); Color,Urine Dark Yellow (Yellow); Glucose,Urine (UA) Normal (Normal); Ketones,Urine Trace mg/dL (Negative); Leukocyte Esterase,Urine Negative (Negative); Nitrite,Urine Negative (Negative); PH,Urine 5.5 pH Units (5.0-8.0); Protein,Urine 30 mg/dL (Neg-Trace); Specific Gravity,Urine 1.024 (1.010-1.025); Urobilinogen,Urine Normal (Normal)
[2019-09-23] MEDS ORDERED: 0.9 % Sodium Chloride 1,000 ML IVC STA (13:32)
[2019-09-23 13:34] LABS: Bacteria,Urine None Seen per hpf (None-Few); Hyaline Casts,Urine None Seen per lpf (None-Few); RBC,Urine 0-3 per hpf (0-3); Squamous Epithelial Cell,Urine Many per lpf (None-Few); WBC,Urine 0-3 per hpf (0-3)
[2019-09-23] MEDS ORDERED: Naloxone 0.4 MG/ML INJ IVP PRN (13:58)
[2019-09-23 14:01] LABS: Transitional Epi Cells,Urine Many per hpf (None-Few)
[2019-09-23] MEDS ORDERED: Pantoprazole 40 MG VIAL IVP ONE (14:56)
[2019-09-23] MEDS ORDERED: GI Cocktail 40 ML EACH PO ONE (15:05)
[2019-09-23] MEDS: Ringers Solution, Lactated 1,000 ML IVC SCH (15:21)
[2019-09-23] MEDS ORDERED: *HR* Dextrose 50 % in Water (Syg) 50 ML SYRINGE IVP PRN (15:22)
[2019-09-23] MEDS ORDERED: Dextrose Gel 15 GM/37.5 ML TUBE PO PRN ×2 (15:22)
[2019-09-23] MEDS ORDERED: D5% in Water 1,000 ML IVC PRN (15:22)
[2019-09-23] MEDS: Insulin LISPRO 300 UNITS/3 ML VIAL SQ SCH ×2 (17:13→23:40)
[2019-09-23] MEDS: *HR* Heparin 5,000 UNIT/ML VIAL SQ SCH (17:13)
[2019-09-23] MEDS ORDERED: Ringers Solution, Lactated 500 ML IVC ONE (18:57)
[2019-09-23] MEDS ORDERED: *HR* OxyCODONE/APAP 5/325 TABLET PO PRN (19:05)
[2019-09-24] MEDS: Ringers Solution, Lactated 1,000 ML IVC SCH (00:35)
[2019-09-24] MEDS: Insulin LISPRO 300 UNITS/3 ML VIAL SQ SCH ×4 (05:37→21:59)
[2019-09-24] MEDS: *HR* Heparin 5,000 UNIT/ML VIAL SQ SCH ×2 (05:37→16:54)
[2019-09-24 05:58] LABS: INR 1.2; Prothrombin Time 13.6 Seconds (9.4-12.1)
[2019-09-24 05:59] LABS: Basophils # 0.1 K/mcL (0.0-0.2); Basophils % 0.4 %; Eosinophils # 0.1 K/mcL (0.0-0.6); Hematocrit 27.6 % (37.5-50.1); Immature Granulocytes % 0.4 % (0-4); Lymphocytes # 2.3 K/mcL (0.6-4.6); Lymphocytes % 16.5 %; Mean Corpuscular HGB Conc 32.6 g/dL (31.6-35.5); Mean Platelet Volume 11.1 fL (9.4-12.4); Monocytes # 0.9 K/mcL (0.0-1.3); Monocytes % 6.2 %; Neutrophils # 10.7 K/mcL (1.6-8.9); Platelet Count 209 K/mcL (140-400); Red Cell Distribution Width 14.3 % (11.5-14.5); Segmented Neutrophils % 75.5 %; White Blood Count 14.1 K/mcL (4.3-11.1)
[2019-09-24 06:19] LABS: BUN/Creatinine Ratio 24 (6-26); Blood Urea Nitrogen 21 mg/dL (8-23); Calcium 8.1 mg/dL (8.6-10.3); Carbon Dioxide 24 mEq/L (23-29); Chloride 108 mEq/L (98-107); Glucose 97 mg/dL (70-105); Magnesium 1.9 mg/dL (1.6-2.6); Osmolality,Calculated 289 (280-300); Potassium 3.7 mEq/L (3.5-5.1); Sodium 138 mEq/L (136-145); eGFR For African Americans > 60 (> 60); eGFR For Non-African Americans > 60 (> 60)
[2019-09-24] MEDS: Tiotropium 18 MCG inhalation IH SCH (07:44)
[2019-09-24] MEDS ORDERED: *HR* FentaNYL (PF) 100 MCG/2 ML VIAL ONE (07:54)
[2019-09-24] MEDS ORDERED: *HR* Midazolam HCl 5 MG/5 ML VIAL IVP ONE ×2 (07:54→07:55)
[2019-09-24] MEDS ORDERED: *HR* FentaNYL (PF) 100 MCG/2 ML VIAL IVP ONE (07:55)
[2019-09-24] MEDS ORDERED: Tetracaine/Benzocaine/Butamben 1 SPRAY AEROSOL MM ONE (07:55)
[2019-09-24] MEDS ORDERED: Simethicone 40 MG/0.6 ML MLS IR ONE (07:55)
[2019-09-24] MEDS ORDERED: Aspirin Enteric Coated 81 MG Tablet PO SCH (09:00)
[2019-09-24] MEDS ORDERED: NON-FORMULARY MEDICATION 1 EACH EACH (Tiotropium Bromide [Spiriva Respimat] 2 PUFF) IH SCH (09:00)
[2019-09-24] MEDS: DilTIAZem CD (24hr) 240 MG CAP.ER.24H PO SCH (10:51)
[2019-09-24] MEDS: Piperacillin/Tazobactam 3.375 GM in 0.9 % Sodium Chloride Mini Bag 100 ML IVPB SCH (18:43)
[2019-09-24] MEDS: Sucralfate 1 GM TABLET PO SCH (21:01)
[2019-09-25] MEDS: Piperacillin/Tazobactam 3.375 GM in 0.9 % Sodium Chloride Mini Bag 100 ML IVPB SCH ×3 (01:21→16:12)
[2019-09-25 02:55] LABS: Basophils # 0.1 K/mcL (0.0-0.2); Basophils % 0.3 %; Eosinophils % 0.3 %; Hematocrit 28.6 % (37.5-50.1); Hemoglobin 9.3 g/dL (12.9-16.9); Immature Granulocytes % 0.5 % (0-4); Lymphocytes % 6.7 %; Mean Corpuscular HGB Conc 32.5 g/dL (31.6-35.5); Mean Corpuscular Hemoglobin 29.8 pg (28.0-33.3); Mean Corpuscular Volume 91.7 fL (83.0-100.0); Mean Platelet Volume 10.3 fL (9.4-12.4); Monocytes # 0.3 K/mcL (0.0-1.3); Monocytes % 2.2 %; Neutrophils # 13.8 K/mcL (1.6-8.9); Platelet Count 213 K/mcL (140-400); Red Blood Count 3.12 M/mcL (4.19-5.50); Red Cell Distribution Width 14.3 % (11.5-14.5); White Blood Count 15.3 K/mcL (4.3-11.1)
[2019-09-25 03:18] LABS: % Iron Saturation 5 % (20-55); BUN/Creatinine Ratio 17 (6-26); Blood Urea Nitrogen 15 mg/dL (8-23); Calcium 7.8 mg/dL (8.6-10.3); Carbon Dioxide 21 mEq/L (23-29); Chloride 107 mEq/L (98-107); Glucose 81 mg/dL (70-105); Iron 11 mcg/dL (65-175); Magnesium 1.7 mg/dL (1.6-2.6); Osmolality,Calculated 282 (280-300); Potassium 3.5 mEq/L (3.5-5.1); Sodium 136 mEq/L (136-145); Transferrin 153 mg/dL (203-362); eGFR For African Americans > 60 (> 60); eGFR For Non-African Americans > 60 (> 60)
[2019-09-25 03:34] LABS: Ferritin 116 ng/mL (20-250)
[2019-09-25 04:16] LABS: Vitamin B12 114 pg/mL (250-1100)
[2019-09-25 05:50] LABS: Folate > 22.3 ng/mL (3.0-16.0)
[2019-09-25] MEDS: *HR* Heparin 5,000 UNIT/ML VIAL SQ SCH ×2 (05:51→16:12)
[2019-09-25 07:04] LABS: Estimated Average Glucose 128 mg/dl
[2019-09-25] MEDS: Tiotropium 18 MCG inhalation IH SCH (07:50)
[2019-09-25] MEDS: DilTIAZem CD (24hr) 240 MG CAP.ER.24H PO SCH (09:01)
[2019-09-25] MEDS: Sucralfate 1 GM TABLET PO SCH ×4 (09:01→19:59)
[2019-09-25] MEDS: Insulin LISPRO 300 UNITS/3 ML VIAL SQ SCH ×3 (09:01→16:17)
[2019-09-25] MEDS ORDERED: Haloperidol Lactate 5 MG/ML VIAL IM ONE (20:27)
[2019-09-25] MEDS ORDERED: Insulin LISPRO 300 UNITS/3 ML VIAL SQ SCH (21:00)
[2019-09-26 01:16] LABS: Basophils % 0.5 %; Eosinophils # 0.3 K/mcL (0.0-0.6); Eosinophils % 3.3 %; Hematocrit 28.3 % (37.5-50.1); Hemoglobin 9.2 g/dL (12.9-16.9); Immature Granulocytes % 0.5 % (0-4); Lymphocytes # 1.8 K/mcL (0.6-4.6); Lymphocytes % 21.9 %; Mean Corpuscular HGB Conc 32.5 g/dL (31.6-35.5); Mean Corpuscular Hemoglobin 29.8 pg (28.0-33.3); Mean Corpuscular Volume 91.6 fL (83.0-100.0); Mean Platelet Volume 10.8 fL (9.4-12.4); Monocytes # 0.4 K/mcL (0.0-1.3); Monocytes % 5.3 %; Neutrophils # 5.7 K/mcL (1.6-8.9); Platelet Count 222 K/mcL (140-400); Red Blood Count 3.09 M/mcL (4.19-5.50); Red Cell Distribution Width 14.2 % (11.5-14.5); Segmented Neutrophils % 68.5 %; White Blood Count 8.3 K/mcL (4.3-11.1)
[2019-09-26 01:33] LABS: BUN/Creatinine Ratio 16 (6-26); Blood Urea Nitrogen 16 mg/dL (8-23); Calcium 7.8 mg/dL (8.6-10.3); Carbon Dioxide 25 mEq/L (23-29); Chloride 105 mEq/L (98-107); Glucose 104 mg/dL (70-105); Magnesium 1.6 mg/dL (1.6-2.6); Osmolality,Calculated 283 (280-300); Potassium 3.8 mEq/L (3.5-5.1); Sodium 136 mEq/L (136-145); eGFR For African Americans > 60 (> 60); eGFR For Non-African Americans > 60 (> 60)
[2019-09-26] MEDS: *HR* Heparin 5,000 UNIT/ML VIAL SQ SCH (05:23)
[2019-09-26 06:57] VITALS: BP 106/66
[2019-09-26] MEDS: Tiotropium 18 MCG inhalation IH SCH (07:48)
[2019-09-26] MEDS: Insulin LISPRO 300 UNITS/3 ML VIAL SQ SCH (08:14)
[2019-09-26] MEDS ORDERED: Cyanocobalamin (B-12) 1,000 MCG TABLET PO SCH (09:00)
[2019-09-26] MEDS: Sucralfate 1 GM TABLET PO SCH (09:20)
[2019-09-26] MEDS: DilTIAZem CD (24hr) 240 MG CAP.ER.24H PO SCH (09:23)
== END 2019-09-26 11:44 | disposition home health service (06) | DRG 872 ==
LOC: EMEROOARM 11:06 → 3BNU 11:06 → SUATTDRO 14:04 → 3BNU 14:42
PROVIDERS: ADMIT Internal Medicine; ATTEND Pharmacist
PROC: ENDOEBX (2019-09-24 08:00)

== ENCOUNTER 2019-11-07 13:17 | Inpatient (IN) ==
[2019-11-07 14:46] LABS: Basophils # 0.1 K/mcL (0.0-0.2); Basophils % 0.3 %; Eosinophils % 0.1 %; Hematocrit 38.5 % (37.5-50.1); Hemoglobin 12.3 g/dL (12.9-16.9); Immature Granulocytes % 0.6 % (0-4); Lymphocytes # 1.1 K/mcL (0.6-4.6); Mean Corpuscular HGB Conc 31.9 g/dL (31.6-35.5); Mean Corpuscular Hemoglobin 29.9 pg (28.0-33.3); Mean Corpuscular Volume 93.7 fL (83.0-100.0); Mean Platelet Volume 9.8 fL (9.4-12.4); Monocytes # 0.7 K/mcL (0.0-1.3); Monocytes % 3.5 %; Neutrophils # 18.9 K/mcL (1.6-8.9); Platelet Count 297 K/mcL (140-400); Red Blood Count 4.11 M/mcL (4.19-5.50); Red Cell Distribution Width 13.8 % (11.5-14.5); Segmented Neutrophils % 90.5 %; White Blood Count 20.9 K/mcL (4.3-11.1)
[2019-11-07 15:10] LABS: Magnesium 1.7 mg/dL (1.6-2.6); Phosphorous 2.6 mg/dL (2.7-4.5)
[2019-11-07 15:20] LABS: Alanine Aminotransferase 11 Units/L (7-52); Albumin 4.1 g/dL (3.5-5.7); Albumin/Globulin Ratio 1.2 (1.1-2.2); Alkaline Phosphatase 71 Units/L (34-104); Aspartate Amino Transferase 14 Units/L (13-39); BUN/Creatinine Ratio 25 (6-26); Bilirubin,Total 0.5 mg/dL (0.3-1.0); Blood Urea Nitrogen 24 mg/dL (8-23); Calcium 9.3 mg/dL (8.6-10.3); Carbon Dioxide 26 mEq/L (23-29); Chloride 104 mEq/L (98-107); Globulin 3.4 g/dL (2.4-3.5); Glucose 159 mg/dL (70-105); Lipase 12 Units/L (11-82); Osmolality,Calculated 297 (280-300); Potassium 4.2 mEq/L (3.5-5.1); Sodium 140 mEq/L (136-145); Total Protein 7.5 g/dL (6.4-8.9); eGFR For African Americans > 60 (> 60); eGFR For Non-African Americans > 60 (> 60)
[2019-11-07] MEDS ORDERED: Ondansetron 4 MG/2 ML VIAL ONE (17:17)
[2019-11-07 19:01] LABS: Bilirubin,Urine Negative (Negative); Blood,Urine Large (Negative); Clarity,Urine Cloudy (Clear); Color,Urine Yellow (Yellow); Glucose,Urine (UA) 100 mg/dL (Normal); Ketones,Urine Trace mg/dL (Negative); Leukocyte Esterase,Urine Small (Negative); Nitrite,Urine Negative (Negative); Protein,Urine Trace mg/dL (Neg-Trace); Specific Gravity,Urine 1.017 (1.010-1.025); Urobilinogen,Urine Normal (Normal)
[2019-11-07 19:04] LABS: Bacteria,Urine None Seen per hpf (None-Few); Hyaline Casts,Urine None Seen per lpf (None-Few); RBC,Urine TNTC per hpf (0-3); Squamous Epithelial Cell,Urine Many per lpf (None-Few)
[2019-11-07] MEDS ORDERED: cefTRIAXone 1,000 MG in Water for inj. (sterile) 10 ML IVP STA (20:10)
[2019-11-07] MEDS ORDERED: Ringers Solution, Lactated 1,000 ML IVC ONE (22:06)
[2019-11-07] MEDS ORDERED: Acetaminophen 325 MG TABLET PO PRN (22:57)
[2019-11-07] MEDS ORDERED: Naloxone 0.4 MG/ML INJ IVP PRN (22:57)
[2019-11-07] MEDS ORDERED: Dextrose Gel 15 GM/37.5 ML TUBE PO PRN ×2 (22:57)
[2019-11-07] MEDS ORDERED: D5% in Water 1,000 ML IVC PRN (22:57)
[2019-11-07] MEDS ORDERED: Ondansetron 4 MG/2 ML VIAL IVP PRN (22:57)
[2019-11-07] MEDS ORDERED: *HR* Dextrose 50 % in Water (Syg) 50 ML SYRINGE IVP PRN (22:57)
[2019-11-07] MEDS ORDERED: *HR* OxyCODONE/APAP 5/325 TABLET PO PRN (23:00)
[2019-11-07] MEDS ORDERED: Ipratropium/Albuterol Neb 3 ML IH PRN (23:02)
[2019-11-08] MEDS: Insulin LISPRO 300 UNITS/3 ML VIAL SQ SCH ×5 (00:25→22:04)
[2019-11-08] MEDS ORDERED: *HR* Metoprolol 5 MG/5 ML VIAL IVP ONE (02:11)
[2019-11-08] MEDS ORDERED: *HR* Metoprolol 5 MG/5 ML VIAL IVP PRN (03:30)
[2019-11-08 03:38] LABS: Basophils # 0.1 K/mcL (0.0-0.2); Basophils % 0.3 %; Hematocrit 35.1 % (37.5-50.1); Hemoglobin 11.2 g/dL (12.9-16.9); Immature Granulocytes % 0.6 % (0-4); Lymphocytes # 1.8 K/mcL (0.6-4.6); Lymphocytes % 8.1 %; Mean Corpuscular HGB Conc 31.9 g/dL (31.6-35.5); Mean Corpuscular Hemoglobin 29.9 pg (28.0-33.3); Mean Corpuscular Volume 93.9 fL (83.0-100.0); Mean Platelet Volume 9.9 fL (9.4-12.4); Monocytes # 0.9 K/mcL (0.0-1.3); Monocytes % 3.9 %; Neutrophils # 19.4 K/mcL (1.6-8.9); Platelet Count 345 K/mcL (140-400); Red Blood Count 3.74 M/mcL (4.19-5.50); Red Cell Distribution Width 14.1 % (11.5-14.5); Segmented Neutrophils % 87.1 %; White Blood Count 22.2 K/mcL (4.3-11.1)
[2019-11-08 03:39] LABS: INR 1.1; Prothrombin Time 12.8 Seconds (9.4-12.1)
[2019-11-08 03:57] LABS: BUN/Creatinine Ratio 27 (6-26); Blood Urea Nitrogen 30 mg/dL (8-23); Calcium 9.2 mg/dL (8.6-10.3); Carbon Dioxide 30 mEq/L (23-29); Chloride 99 mEq/L (98-107); Glucose 149 mg/dL (70-105); Magnesium 1.7 mg/dL (1.6-2.6); Osmolality,Calculated 297 (280-300); Phosphorous 3.4 mg/dL (2.7-4.5); Sodium 139 mEq/L (136-145); eGFR For African Americans > 60 (> 60); eGFR For Non-African Americans > 60 (> 60)
[2019-11-08] MEDS ORDERED: cefTRIAXone 1,000 MG in Water for inj. (sterile) 10 ML IVP ONE (06:00)
[2019-11-08] MEDS ORDERED: Pantoprazole 40 MG VIAL IVP SCH (06:00)
[2019-11-08] MEDS: Ringers Solution, Lactated 1,000 ML IVC SCH ×2 (06:05→18:55)
[2019-11-08] MEDS: Pantoprazole 40 MG VIAL IVP SCH ×2 (06:12→17:53)
[2019-11-08] MEDS: Tiotropium 18 MCG inhalation IH SCH (07:57)
[2019-11-08] MEDS ORDERED: DilTIAZem CD (24hr) 240 MG CAP.ER.24H PO SCH (09:00)
[2019-11-08] MEDS: Cyanocobalamin (B-12) 1,000 MCG TABLET PO SCH (09:33)
[2019-11-08] MEDS: Nystatin SUSP 5 ML UD.LIQ PO SCH ×3 (13:36→20:12)
[2019-11-09 01:21] LABS: Basophils % 0.4 %; Hemoglobin 9.7 g/dL (12.9-16.9); Red Cell Distribution Width 14.1 % (11.5-14.5)
[2019-11-09 01:23] LABS: Basophils # 0.1 K/mcL (0.0-0.2); Eosinophils # 0.1 K/mcL (0.0-0.6); Eosinophils % 0.7 %; Hematocrit 31.5 % (37.5-50.1); Immature Granulocytes % 0.4 % (0-4); Immature Platelets 2.9 % (1.1-6.1); Lymphocytes % 14.5 %; Mean Corpuscular HGB Conc 30.8 g/dL (31.6-35.5); Mean Corpuscular Hemoglobin 29.6 pg (28.0-33.3); Mean Platelet Volume 10.7 fL (9.4-12.4); Monocytes # 0.8 K/mcL (0.0-1.3); Monocytes % 4.6 %; Neutrophils # 13.4 K/mcL (1.6-8.9); Nucleated Red Blood Cells 0.1 /100 WBC (0); Platelet Count 256 K/mcL (140-400); Red Blood Count 3.28 M/mcL (4.19-5.50); Segmented Neutrophils % 79.4 %; White Blood Count 16.9 K/mcL (4.3-11.1)
[2019-11-09 01:26] LABS: Blood Urea Nitrogen 23 mg/dL (8-23); Calcium 8.3 mg/dL (8.6-10.3); Carbon Dioxide 26 mEq/L (23-29); Chloride 106 mEq/L (98-107); Glucose 98 mg/dL (70-105); Osmolality,Calculated 292 (280-300); Potassium 3.6 mEq/L (3.5-5.1); Sodium 139 mEq/L (136-145)
[2019-11-09] MEDS: Ringers Solution, Lactated 1,000 ML IVC SCH (01:26)
[2019-11-09 01:40] LABS: BUN/Creatinine Ratio 25 (6-26); eGFR For African Americans > 60 (> 60); eGFR For Non-African Americans > 60 (> 60)
[2019-11-09 01:46] LABS: Lymphocytes # 2.5 K/mcL (0.6-4.6)
[2019-11-09] MEDS: Pantoprazole 40 MG VIAL IVP SCH ×2 (05:34→17:31)
[2019-11-09] MEDS: Tiotropium 18 MCG inhalation IH SCH (07:41)
[2019-11-09] MEDS: Insulin LISPRO 300 UNITS/3 ML VIAL SQ SCH ×6 (10:17→23:47)
[2019-11-09] MEDS: Nystatin SUSP 5 ML UD.LIQ PO SCH ×4 (10:17→21:18)
[2019-11-09] MEDS: cefTRIAXone 1,000 MG in Water for inj. (sterile) 10 ML IVP SCH (10:17)
[2019-11-09] MEDS: Cyanocobalamin (B-12) 1,000 MCG TABLET PO SCH (10:18)
[2019-11-09] MEDS: D5% in 0.9% NACL 1,000 ML IVC SCH (13:23)
[2019-11-09] MEDS ORDERED: Lidocaine -MPF 2% 2 ML VIAL ONE (14:18)
[2019-11-09] MEDS ORDERED: *HR* PHENYLEPHRINE 1,000 MCG/10 ML SYRINGE IVP ONE (14:55)
[2019-11-09] MEDS: *HR* Heparin 5,000 UNIT/ML VIAL SQ SCH (17:31)
[2019-11-10] MEDS: *HR* Heparin 5,000 UNIT/ML VIAL SQ SCH ×2 (06:00→17:37)
[2019-11-10] MEDS: Insulin LISPRO 300 UNITS/3 ML VIAL SQ SCH ×4 (06:00→21:35)
[2019-11-10] MEDS: Pantoprazole 40 MG VIAL IVP SCH ×2 (06:00→17:38)
[2019-11-10 07:24] LABS: Basophils # 0.1 K/mcL (0.0-0.2); Basophils % 0.5 %; Eosinophils # 0.2 K/mcL (0.0-0.6); Hematocrit 29.7 % (37.5-50.1); Hemoglobin 9.3 g/dL (12.9-16.9); Immature Granulocytes % 0.3 % (0-4); Lymphocytes % 19.2 %; Mean Corpuscular HGB Conc 31.3 g/dL (31.6-35.5); Mean Corpuscular Hemoglobin 29.3 pg (28.0-33.3); Mean Corpuscular Volume 93.7 fL (83.0-100.0); Mean Platelet Volume 10.3 fL (9.4-12.4); Monocytes # 0.5 K/mcL (0.0-1.3); Neutrophils # 7.5 K/mcL (1.6-8.9); Platelet Count 250 K/mcL (140-400); Red Blood Count 3.17 M/mcL (4.19-5.50); Red Cell Distribution Width 13.5 % (11.5-14.5); White Blood Count 10.2 K/mcL (4.3-11.1)
[2019-11-10] MEDS: Tiotropium 18 MCG inhalation IH SCH (07:33)
[2019-11-10 07:42] LABS: BUN/Creatinine Ratio 20 (6-26); Blood Urea Nitrogen 16 mg/dL (8-23); Carbon Dioxide 26 mEq/L (23-29); Chloride 106 mEq/L (98-107); Glucose 94 mg/dL (70-105); Magnesium 1.5 mg/dL (1.6-2.6); Osmolality,Calculated 287 (280-300); Phosphorous 1.9 mg/dL (2.7-4.5); Potassium 3.3 mEq/L (3.5-5.1); Sodium 138 mEq/L (136-145); eGFR For African Americans > 60 (> 60); eGFR For Non-African Americans > 60 (> 60)
[2019-11-10] MEDS: cefTRIAXone 1,000 MG in Water for inj. (sterile) 10 ML IVP SCH (09:09)
[2019-11-10] MEDS: Cyanocobalamin (B-12) 1,000 MCG TABLET PO SCH (09:10)
[2019-11-10] MEDS: DilTIAZem CD (24hr) 240 MG CAP.ER.24H PO SCH (09:10)
[2019-11-10] MEDS: Nystatin SUSP 5 ML UD.LIQ PO SCH ×4 (09:10→21:26)
[2019-11-10] MEDS ORDERED: Magnesium Sulfate 1 GM/102 ML PIGGYBACK IVPB ONE (12:26)
[2019-11-10] MEDS ORDERED: Potassium Phosphate 44 MEQ in 0.9 % Sodium Chloride 250 ML IVPB ONE (12:26)
[2019-11-11] MEDS: Insulin LISPRO 300 UNITS/3 ML VIAL SQ SCH ×6 (00:10→20:19)
[2019-11-11] MEDS: *HR* Heparin 5,000 UNIT/ML VIAL SQ SCH ×2 (05:09→17:20)
[2019-11-11] MEDS: Pantoprazole 40 MG VIAL IVP SCH (05:10)
[2019-11-11] MEDS: Tiotropium 18 MCG inhalation IH SCH (07:34)
[2019-11-11] MEDS: Nystatin SUSP 5 ML UD.LIQ PO SCH ×4 (08:17→20:08)
[2019-11-11] MEDS: DilTIAZem CD (24hr) 240 MG CAP.ER.24H PO SCH (08:17)
[2019-11-11] MEDS: Cyanocobalamin (B-12) 1,000 MCG TABLET PO SCH (08:17)
[2019-11-11] MEDS: cefTRIAXone 1,000 MG in Water for inj. (sterile) 10 ML IVP SCH (08:17)
[2019-11-11 08:53] LABS: Basophils # 0.1 K/mcL (0.0-0.2); Basophils % 0.5 %; Eosinophils # 0.2 K/mcL (0.0-0.6); Eosinophils % 2.2 %; Hematocrit 30.9 % (37.5-50.1); Immature Granulocytes % 0.2 % (0-4); Lymphocytes # 2.1 K/mcL (0.6-4.6); Lymphocytes % 22.1 %; Mean Corpuscular HGB Conc 32.4 g/dL (31.6-35.5); Mean Corpuscular Hemoglobin 29.9 pg (28.0-33.3); Mean Corpuscular Volume 92.5 fL (83.0-100.0); Mean Platelet Volume 10.2 fL (9.4-12.4); Monocytes # 0.5 K/mcL (0.0-1.3); Neutrophils # 6.7 K/mcL (1.6-8.9); Platelet Count 305 K/mcL (140-400); Red Blood Count 3.34 M/mcL (4.19-5.50); Red Cell Distribution Width 13.7 % (11.5-14.5); White Blood Count 9.6 K/mcL (4.3-11.1)
[2019-11-11 09:14] LABS: BUN/Creatinine Ratio 17 (6-26); Blood Urea Nitrogen 13 mg/dL (8-23); Carbon Dioxide 26 mEq/L (23-29); Chloride 102 mEq/L (98-107); Glucose 120 mg/dL (70-105); Magnesium 1.7 mg/dL (1.6-2.6); Osmolality,Calculated 281 (280-300); Sodium 135 mEq/L (136-145); eGFR For African Americans > 60 (> 60); eGFR For Non-African Americans > 60 (> 60)
[2019-11-11] MEDS ORDERED: Potassium Phosphate 44 MEQ in 0.9 % Sodium Chloride 250 ML IVPB ONE (13:34)
[2019-11-11] MEDS ORDERED: Potassium Chloride Elixir 20 MEQ/15 ML UDC GTUBE ONE (13:34)
[2019-11-12] MEDS: Insulin LISPRO 300 UNITS/3 ML VIAL SQ SCH ×7 (00:35→23:50)
[2019-11-12] MEDS: *HR* Heparin 5,000 UNIT/ML VIAL SQ SCH ×2 (05:47→18:12)
[2019-11-12] MEDS: Tiotropium 18 MCG inhalation IH SCH (07:48)
[2019-11-12] MEDS: cefTRIAXone 1,000 MG in Water for inj. (sterile) 10 ML IVP SCH (09:28)
[2019-11-12] MEDS: DilTIAZem CD (24hr) 240 MG CAP.ER.24H PO SCH (09:31)
[2019-11-12] MEDS: Nystatin SUSP 5 ML UD.LIQ PO SCH ×4 (09:31→21:15)
[2019-11-12] MEDS: Cyanocobalamin (B-12) 1,000 MCG TABLET PO SCH (09:31)
[2019-11-12 09:52] LABS: Basophils # 0.1 K/mcL (0.0-0.2); Basophils % 0.7 %; Eosinophils # 0.2 K/mcL (0.0-0.6); Eosinophils % 2.2 %; Hematocrit 30.9 % (37.5-50.1); Hemoglobin 9.8 g/dL (12.9-16.9); Immature Granulocytes % 0.4 % (0-4); Lymphocytes # 2.1 K/mcL (0.6-4.6); Lymphocytes % 20.9 %; Mean Corpuscular HGB Conc 31.7 g/dL (31.6-35.5); Mean Corpuscular Hemoglobin 29.6 pg (28.0-33.3); Mean Corpuscular Volume 93.4 fL (83.0-100.0); Mean Platelet Volume 10.4 fL (9.4-12.4); Monocytes # 0.7 K/mcL (0.0-1.3); Monocytes % 6.6 %; Neutrophils # 6.9 K/mcL (1.6-8.9); Platelet Count 326 K/mcL (140-400); Red Blood Count 3.31 M/mcL (4.19-5.50); Red Cell Distribution Width 13.8 % (11.5-14.5); Segmented Neutrophils % 69.2 %
[2019-11-12 10:02] LABS: BUN/Creatinine Ratio 13 (6-26); Blood Urea Nitrogen 10 mg/dL (8-23); Calcium 8.3 mg/dL (8.6-10.3); Carbon Dioxide 25 mEq/L (23-29); Chloride 103 mEq/L (98-107); Glucose 140 mg/dL (70-105); Magnesium 1.6 mg/dL (1.6-2.6); Osmolality,Calculated 281 (280-300); Potassium 3.7 mEq/L (3.5-5.1); Sodium 135 mEq/L (136-145); eGFR For African Americans > 60 (> 60); eGFR For Non-African Americans > 60 (> 60)
[2019-11-12] MEDS: Haloperidol Lactate 5 MG/ML VIAL IVP PRN (15:53)
[2019-11-12] MEDS: D5% in 0.9% NACL 1,000 ML IVC SCH (19:37)
[2019-11-13] MEDS: Insulin LISPRO 300 UNITS/3 ML VIAL SQ SCH ×5 (04:20→21:28)
[2019-11-13 05:07] LABS: BUN/Creatinine Ratio 19 (6-26); Blood Urea Nitrogen 14 mg/dL (8-23); Calcium 8.2 mg/dL (8.6-10.3); Carbon Dioxide 23 mEq/L (23-29); Chloride 105 mEq/L (98-107); Glucose 101 mg/dL (70-105); Magnesium 1.8 mg/dL (1.6-2.6); Osmolality,Calculated 281 (280-300); Phosphorous 2.3 mg/dL (2.7-4.5); Potassium 4.4 mEq/L (3.5-5.1); Sodium 135 mEq/L (136-145); eGFR For African Americans > 60 (> 60); eGFR For Non-African Americans > 60 (> 60)
[2019-11-13] MEDS: *HR* Heparin 5,000 UNIT/ML VIAL SQ SCH ×2 (05:14→17:17)
[2019-11-13] MEDS: Nystatin SUSP 5 ML UD.LIQ PO SCH ×4 (08:35→21:31)
[2019-11-13] MEDS: Cyanocobalamin (B-12) 1,000 MCG TABLET PO SCH (08:36)
[2019-11-13] MEDS: cefTRIAXone 1,000 MG in Water for inj. (sterile) 10 ML IVP SCH (08:36)
[2019-11-13] MEDS: DilTIAZem CD (24hr) 240 MG CAP.ER.24H PO SCH (08:36)
[2019-11-13] MEDS: Tiotropium 18 MCG inhalation IH SCH (09:17)
[2019-11-14] MEDS: Insulin LISPRO 300 UNITS/3 ML VIAL SQ SCH ×6 (00:14→21:53)
[2019-11-14] MEDS: *HR* Heparin 5,000 UNIT/ML VIAL SQ SCH ×2 (05:19→16:34)
[2019-11-14 07:26] LABS: Basophils # 0.1 K/mcL (0.0-0.2); Basophils % 0.6 %; Eosinophils # 0.3 K/mcL (0.0-0.6); Eosinophils % 2.8 %; Hematocrit 29.2 % (37.5-50.1); Hemoglobin 9.2 g/dL (12.9-16.9); Immature Granulocytes % 0.5 % (0-4); Lymphocytes # 2.3 K/mcL (0.6-4.6); Lymphocytes % 22.2 %; Mean Corpuscular HGB Conc 31.5 g/dL (31.6-35.5); Mean Corpuscular Hemoglobin 29.7 pg (28.0-33.3); Mean Corpuscular Volume 94.2 fL (83.0-100.0); Mean Platelet Volume 10.5 fL (9.4-12.4); Monocytes # 0.7 K/mcL (0.0-1.3); Monocytes % 6.6 %; Neutrophils # 7.1 K/mcL (1.6-8.9); Platelet Count 293 K/mcL (140-400); Red Cell Distribution Width 14.1 % (11.5-14.5); Segmented Neutrophils % 67.3 %; White Blood Count 10.5 K/mcL (4.3-11.1)
[2019-11-14 07:47] LABS: BUN/Creatinine Ratio 21 (6-26); Blood Urea Nitrogen 18 mg/dL (8-23); Calcium 8.4 mg/dL (8.6-10.3); Carbon Dioxide 28 mEq/L (23-29); Chloride 103 mEq/L (98-107); Glucose 113 mg/dL (70-105); Osmolality,Calculated 285 (280-300); Potassium 3.9 mEq/L (3.5-5.1); Sodium 136 mEq/L (136-145); eGFR For African Americans > 60 (> 60); eGFR For Non-African Americans > 60 (> 60)
[2019-11-14] MEDS: Tiotropium 18 MCG inhalation IH SCH (07:52)
[2019-11-14] MEDS: cefTRIAXone 1,000 MG in Water for inj. (sterile) 10 ML IVP SCH (08:10)
[2019-11-14] MEDS: DilTIAZem CD (24hr) 240 MG CAP.ER.24H PO SCH (08:12)
[2019-11-14] MEDS: Cyanocobalamin (B-12) 1,000 MCG TABLET PO SCH (08:12)
[2019-11-14] MEDS: Nystatin SUSP 5 ML UD.LIQ PO SCH ×4 (08:12→21:53)
[2019-11-14] MEDS: Haloperidol Lactate 5 MG/ML VIAL IVP PRN (23:54)
[2019-11-15 06:04] LABS: BUN/Creatinine Ratio 24 (6-26); Blood Urea Nitrogen 18 mg/dL (8-23); Calcium 8.6 mg/dL (8.6-10.3); Carbon Dioxide 26 mEq/L (23-29); Chloride 107 mEq/L (98-107); Glucose 104 mg/dL (70-105); Osmolality,Calculated 290 (280-300); Phosphorous 1.9 mg/dL (2.7-4.5); Potassium 4.3 mEq/L (3.5-5.1); Sodium 139 mEq/L (136-145); eGFR For African Americans > 60 (> 60); eGFR For Non-African Americans > 60 (> 60)
[2019-11-15] MEDS: *HR* Heparin 5,000 UNIT/ML VIAL SQ SCH ×2 (06:24→17:43)
[2019-11-15] MEDS: Insulin LISPRO 300 UNITS/3 ML VIAL SQ SCH ×6 (06:29→21:03)
[2019-11-15] MEDS: Tiotropium 18 MCG inhalation IH SCH (07:44)
[2019-11-15] MEDS: Cyanocobalamin (B-12) 1,000 MCG TABLET PO SCH (08:26)
[2019-11-15] MEDS: Nystatin SUSP 5 ML UD.LIQ PO SCH ×4 (08:26→21:13)
[2019-11-15] MEDS: DilTIAZem CD (24hr) 240 MG CAP.ER.24H PO SCH (08:26)
[2019-11-15] MEDS ORDERED: QUEtiapine Fumarate 25 MG TABLET PO SCH (21:00)
[2019-11-16] MEDS: Insulin LISPRO 300 UNITS/3 ML VIAL SQ SCH ×7 (00:01→23:53)
[2019-11-16] MEDS: *HR* Heparin 5,000 UNIT/ML VIAL SQ SCH ×2 (05:49→17:22)
[2019-11-16] MEDS: Tiotropium 18 MCG inhalation IH SCH (07:36)
[2019-11-16 07:53] LABS: BUN/Creatinine Ratio 24 (6-26); Blood Urea Nitrogen 17 mg/dL (8-23); Calcium 8.7 mg/dL (8.6-10.3); Carbon Dioxide 26 mEq/L (23-29); Chloride 107 mEq/L (98-107); Glucose 105 mg/dL (70-105); Magnesium 2.1 mg/dL (1.6-2.6); Osmolality,Calculated 292 (280-300); Phosphorous 2.6 mg/dL (2.7-4.5); Sodium 140 mEq/L (136-145); eGFR For African Americans > 60 (> 60); eGFR For Non-African Americans > 60 (> 60)
[2019-11-16] MEDS: Cyanocobalamin (B-12) 1,000 MCG TABLET PO SCH (08:50)
[2019-11-16] MEDS: Nystatin SUSP 5 ML UD.LIQ PO SCH ×4 (08:50→20:37)
[2019-11-16] MEDS: DilTIAZem CD (24hr) 240 MG CAP.ER.24H PO SCH (08:50)
[2019-11-16] MEDS: QUEtiapine Fumarate 25 MG TABLET PO SCH (20:37)
[2019-11-17] MEDS: Insulin LISPRO 300 UNITS/3 ML VIAL SQ SCH ×5 (04:53→22:39)
[2019-11-17] MEDS: *HR* Heparin 5,000 UNIT/ML VIAL SQ SCH ×2 (05:20→15:57)
[2019-11-17] MEDS: Tiotropium 18 MCG inhalation IH SCH (08:30)
[2019-11-17] MEDS: Aspirin Enteric Coated 81 MG Tablet PO SCH (08:37)
[2019-11-17] MEDS: DilTIAZem CD (24hr) 240 MG CAP.ER.24H PO SCH (08:37)
[2019-11-17] MEDS: Cyanocobalamin (B-12) 1,000 MCG TABLET PO SCH (08:37)
[2019-11-17] MEDS: Nystatin SUSP 5 ML UD.LIQ PO SCH ×4 (08:38→22:41)
[2019-11-17] MEDS: QUEtiapine Fumarate 25 MG TABLET PO SCH (22:46)
[2019-11-18] MEDS: Insulin LISPRO 300 UNITS/3 ML VIAL SQ SCH ×5 (00:39→12:22)
[2019-11-18] MEDS: *HR* Heparin 5,000 UNIT/ML VIAL SQ SCH (05:56)
[2019-11-18] MEDS: DilTIAZem CD (24hr) 240 MG CAP.ER.24H PO SCH (09:31)
[2019-11-18] MEDS: Cyanocobalamin (B-12) 1,000 MCG TABLET PO SCH (09:31)
[2019-11-18] MEDS: Aspirin Enteric Coated 81 MG Tablet PO SCH (09:31)
[2019-11-18] MEDS: Nystatin SUSP 5 ML UD.LIQ PO SCH ×2 (09:33→12:13)
[2019-11-18] MEDS: Tiotropium 18 MCG inhalation IH SCH (10:07)
[2019-11-18 16:08] VITALS: BP 104/64
== END 2019-11-18 18:25 | DRG 380 ==
LOC: EMEROOARM 13:17 → 3ANU 13:17 → SUATTDRO 20:40 → 3ANU 23:33 → SUATTDRO 11-08 12:49
PROVIDERS: ADMIT Student in an Organized Health Care Education/Training Program; ATTEND Internal Medicine

== ENCOUNTER 2019-11-23 06:55 | Inpatient (IN) ==
[2019-11-23] MEDS ORDERED: Pantoprazole 40 MG VIAL IVP ONE (07:27)
[2019-11-23 08:04] LABS: Basophils % 0.2 %; Hemoglobin 6.5 g/dL (12.9-16.9); Lymphocytes % 5.8 %
[2019-11-23 08:09] LABS: INR 1.1; Prothrombin Time 12.3 Seconds (9.4-12.1)
[2019-11-23 08:12] LABS: Activated Partial Thrombo Time 27.5 Seconds (26.0-36.0)
[2019-11-23 08:16] LABS: Hematocrit 20.8 % (37.5-50.1); Immature Granulocytes % 1.2 % (0-4); Lymphocytes # 1.3 K/mcL (0.6-4.6); Mean Corpuscular HGB Conc 31.3 g/dL (31.6-35.5); Mean Corpuscular Hemoglobin 30.8 pg (28.0-33.3); Mean Corpuscular Volume 98.6 fL (83.0-100.0); Mean Platelet Volume 11.4 fL (9.4-12.4); Monocytes % 4.7 %; Neutrophils # 19.7 K/mcL (1.6-8.9); Platelet Count 264 K/mcL (140-400); Red Blood Count 2.11 M/mcL (4.19-5.50); Red Cell Distribution Width 14.2 % (11.5-14.5); Segmented Neutrophils % 88.1 %; White Blood Count 22.3 K/mcL (4.3-11.1)
[2019-11-23 08:28] LABS: Alanine Aminotransferase 11 Units/L (7-52); Albumin/Globulin Ratio 1.2 (1.1-2.2); Alkaline Phosphatase 54 Units/L (34-104); Aspartate Amino Transferase 12 Units/L (13-39); BUN/Creatinine Ratio 70 (6-26); Bilirubin,Total 0.2 mg/dL (0.3-1.0); Blood Urea Nitrogen 69 mg/dL (8-23); Calcium 8.2 mg/dL (8.6-10.3); Carbon Dioxide 19 mEq/L (23-29); Chloride 102 mEq/L (98-107); Globulin 2.5 g/dL (2.4-3.5); Glucose 272 mg/dL (70-105); Lipase 13 Units/L (11-82); Osmolality,Calculated 310 (280-300); Potassium 4.8 mEq/L (3.5-5.1); Sodium 135 mEq/L (136-145); Total Protein 5.5 g/dL (6.4-8.9); Troponin I < 0.03 ng/mL (< 0.04); eGFR For African Americans > 60 (> 60); eGFR For Non-African Americans > 60 (> 60)
[2019-11-23] MEDS ORDERED: Ondansetron ODT 4 MG TAB.RAPDIS SL PRN (09:36)
[2019-11-23] MEDS ORDERED: Naloxone 0.4 MG/ML INJ IVP PRN (09:36)
[2019-11-23] MEDS ORDERED: 0.9 % Sodium Chloride 500 ML ONE ×2 (10:15→13:41)
[2019-11-23] MEDS ORDERED: D5% in Water 1,000 ML IVC PRN (10:27)
[2019-11-23] MEDS ORDERED: *HR* Dextrose 50 % in Water (Vial) 50 ML VIAL IVP PRN (10:27)
[2019-11-23] MEDS ORDERED: Dextrose Gel 15 GM/37.5 ML TUBE PO PRN ×2 (10:27)
[2019-11-23] MEDS: Insulin LISPRO 300 UNITS/3 ML VIAL SQ SCH ×2 (14:07→17:50)
[2019-11-23] MEDS: Sucralfate 1 GM TABLET PO SCH ×3 (14:08→21:02)
[2019-11-23] MEDS: 0.9 % Sodium Chloride 1,000 ML IVC SCH (17:30)
[2019-11-23] MEDS: Pantoprazole 40 MG VIAL IVP SCH (17:32)
[2019-11-23 18:53] LABS: Hemoglobin 9.2 g/dL (12.9-16.9)
[2019-11-23] MEDS: QUEtiapine Fumarate 25 MG TABLET PO SCH (21:02)
[2019-11-24] MEDS: Insulin LISPRO 300 UNITS/3 ML VIAL SQ SCH ×4 (00:23→18:04)
[2019-11-24 01:37] LABS: Basophils # 0.1 K/mcL (0.0-0.2); Basophils % 0.5 %; Eosinophils # 0.1 K/mcL (0.0-0.6); Eosinophils % 0.9 %; Hematocrit 26.2 % (37.5-50.1); Hemoglobin 8.6 g/dL (12.9-16.9); Immature Granulocytes % 0.4 % (0-4); Lymphocytes # 2.9 K/mcL (0.6-4.6); Lymphocytes % 22.4 %; Mean Corpuscular HGB Conc 32.8 g/dL (31.6-35.5); Mean Corpuscular Volume 91.3 fL (83.0-100.0); Mean Platelet Volume 11.1 fL (9.4-12.4); Monocytes # 0.7 K/mcL (0.0-1.3); Monocytes % 5.8 %; Platelet Count 264 K/mcL (140-400); Red Blood Count 2.87 M/mcL (4.19-5.50); Red Cell Distribution Width 14.8 % (11.5-14.5); White Blood Count 12.8 K/mcL (4.3-11.1)
[2019-11-24 01:52] LABS: BUN/Creatinine Ratio 63 (6-26); Blood Urea Nitrogen 52 mg/dL (8-23); Calcium 7.9 mg/dL (8.6-10.3); Carbon Dioxide 25 mEq/L (23-29); Chloride 106 mEq/L (98-107); Glucose 98 mg/dL (70-105); Magnesium 1.8 mg/dL (1.6-2.6); Osmolality,Calculated 300 (280-300); Phosphorous 2.8 mg/dL (2.7-4.5); Sodium 138 mEq/L (136-145); eGFR For African Americans > 60 (> 60); eGFR For Non-African Americans > 60 (> 60)
[2019-11-24] MEDS: Pantoprazole 40 MG VIAL IVP SCH ×2 (05:36→18:04)
[2019-11-24] MEDS: DilTIAZem CD (24hr) 240 MG CAP.ER.24H PO SCH (08:30)
[2019-11-24] MEDS: Cyanocobalamin (B-12) 1,000 MCG TABLET PO SCH (08:31)
[2019-11-24] MEDS: Sucralfate 1 GM TABLET PO SCH ×4 (08:31→22:45)
[2019-11-24] MEDS: 0.9 % Sodium Chloride 1,000 ML IVC SCH (20:00)
[2019-11-24 21:30] LABS: Bacteria,Urine Few per hpf (None-Few); Bilirubin,Urine Negative (Negative); Blood,Urine Trace (Negative); Clarity,Urine Clear (Clear); Color,Urine Light-Yellow (Yellow); Glucose,Urine (UA) Normal (Normal); Ketones,Urine Negative (Negative); Leukocyte Esterase,Urine Moderate (Negative); Mucus,Urine Few per lpf (None-Few); Nitrite,Urine Negative (Negative); Protein,Urine Trace mg/dL (Neg-Trace); RBC,Urine 15-30 per hpf (0-3); Urobilinogen,Urine Normal (Normal); WBC,Urine 30-50 per hpf (0-3)
[2019-11-24] MEDS: QUEtiapine Fumarate 25 MG TABLET PO SCH (22:44)
[2019-11-25] MEDS: Pantoprazole 40 MG VIAL IVP SCH ×2 (06:53→18:01)
[2019-11-25] MEDS: Insulin LISPRO 300 UNITS/3 ML VIAL SQ SCH ×4 (06:54→18:26)
[2019-11-25] MEDS: Cyanocobalamin (B-12) 1,000 MCG TABLET PO SCH (09:04)
[2019-11-25] MEDS: Sucralfate 1 GM TABLET PO SCH ×4 (09:04→21:24)
[2019-11-25] MEDS: DilTIAZem CD (24hr) 240 MG CAP.ER.24H PO SCH (09:04)
[2019-11-25 09:23] LABS: BUN/Creatinine Ratio 43 (6-26); Blood Urea Nitrogen 35 mg/dL (8-23); Carbon Dioxide 25 mEq/L (23-29); Chloride 109 mEq/L (98-107); Glucose 167 mg/dL (70-105); Osmolality,Calculated 298 (280-300); Potassium 3.6 mEq/L (3.5-5.1); Sodium 138 mEq/L (136-145); eGFR For African Americans > 60 (> 60); eGFR For Non-African Americans > 60 (> 60)
[2019-11-25 09:30] LABS: Hematocrit 25.2 % (37.5-50.1); Hemoglobin 8.4 g/dL (12.9-16.9); Mean Corpuscular HGB Conc 33.3 g/dL (31.6-35.5); Mean Corpuscular Hemoglobin 30.9 pg (28.0-33.3); Mean Corpuscular Volume 92.6 fL (83.0-100.0); Mean Platelet Volume 10.6 fL (9.4-12.4); Platelet Count 277 K/mcL (140-400); Red Blood Count 2.72 M/mcL (4.19-5.50); Red Cell Distribution Width 14.9 % (11.5-14.5); White Blood Count 8.7 K/mcL (4.3-11.1)
[2019-11-25 16:49] LABS: Bacteria,Urine Few per hpf (None-Few); Bilirubin,Urine Negative (Negative); Blood,Urine Trace (Negative); Budding Yeast,Urine Few per hpf (None Seen); Clarity,Urine Clear (Clear); Color,Urine Yellow (Yellow); Glucose,Urine (UA) Normal (Normal); Ketones,Urine Negative (Negative); Leukocyte Esterase,Urine Large (Negative); Mucus,Urine Few per lpf (None-Few); Nitrite,Urine Negative (Negative); PH,Urine 6.5 pH Units (5.0-8.0); Protein,Urine Trace mg/dL (Neg-Trace); RBC,Urine 15-30 per hpf (0-3); Specific Gravity,Urine 1.022 (1.010-1.025); Squamous Epithelial Cell,Urine Few per hpf (None-Few); Urobilinogen,Urine Normal (Normal); WBC,Urine TNTC per hpf (0-3)
[2019-11-25] MEDS: cefTRIAXone 1,000 MG in Water for inj. (sterile) 10 ML IVP SCH (18:01)
[2019-11-25] MEDS: QUEtiapine Fumarate 25 MG TABLET PO SCH (21:24)
[2019-11-26] MEDS: Insulin LISPRO 300 UNITS/3 ML VIAL SQ SCH ×3 (00:19→13:56)
[2019-11-26] MEDS: Pantoprazole 40 MG VIAL IVP SCH (05:12)
[2019-11-26] MEDS: Sucralfate 1 GM TABLET PO SCH ×2 (09:01→13:57)
[2019-11-26] MEDS: DilTIAZem CD (24hr) 240 MG CAP.ER.24H PO SCH (09:01)
[2019-11-26] MEDS: Cyanocobalamin (B-12) 1,000 MCG TABLET PO SCH (09:01)
[2019-11-26] MEDS: cefTRIAXone 1,000 MG in Water for inj. (sterile) 10 ML IVP SCH (09:01)
[2019-11-26 17:40] VITALS: BP 143/73
== END 2019-11-26 18:30 | DRG 377 ==
LOC: EMEROOARM 06:55 → CDU 06:55 → SUATTDRO 13:06 → 3ANU 16:38
PROVIDERS: ADMIT Internal Medicine; ATTEND Internal Medicine

== ENCOUNTER 2019-11-27 18:01 | Inpatient (IN) ==
[2019-11-27 23:33] LABS: Hematocrit 27.7 % (37.5-50.1); Mean Corpuscular HGB Conc 32.5 g/dL (31.6-35.5); Mean Corpuscular Hemoglobin 30.7 pg (28.0-33.3); Mean Corpuscular Volume 94.5 fL (83.0-100.0); Mean Platelet Volume 9.8 fL (9.4-12.4); Platelet Count 337 K/mcL (140-400); Red Blood Count 2.93 M/mcL (4.19-5.50); Red Cell Distribution Width 14.3 % (11.5-14.5)
[2019-11-27 23:34] LABS: White Blood Count 13.6 K/mcL (4.3-11.1)
[2019-11-27 23:47] LABS: BUN/Creatinine Ratio 30 (6-26); Blood Urea Nitrogen 25 mg/dL (8-23); Calcium 8.5 mg/dL (8.6-10.3); Carbon Dioxide 26 mEq/L (23-29); Chloride 105 mEq/L (98-107); Glucose 88 mg/dL (70-105); Osmolality,Calculated 288 (280-300); Potassium 4.4 mEq/L (3.5-5.1); Sodium 137 mEq/L (136-145); eGFR For African Americans > 60 (> 60); eGFR For Non-African Americans > 60 (> 60)
[2019-11-28] MEDS ORDERED: Naloxone 0.4 MG/ML INJ IVP PRN (01:42)
[2019-11-28] MEDS ORDERED: Dextrose Gel 15 GM/37.5 ML TUBE PO PRN ×2 (02:25)
[2019-11-28] MEDS ORDERED: *HR* Dextrose 50 % in Water (Vial) 50 ML VIAL IVP PRN (02:25)
[2019-11-28] MEDS ORDERED: D5% in Water 1,000 ML IVC PRN (02:25)
[2019-11-28] MEDS ORDERED: Acetaminophen 325 MG TABLET PO PRN (02:38)
[2019-11-28 05:25] LABS: Hematocrit 28.7 % (37.5-50.1); Hemoglobin 9.3 g/dL (12.9-16.9); Mean Corpuscular HGB Conc 32.4 g/dL (31.6-35.5); Mean Corpuscular Hemoglobin 30.6 pg (28.0-33.3); Mean Corpuscular Volume 94.4 fL (83.0-100.0); Mean Platelet Volume 10.1 fL (9.4-12.4); Platelet Count 346 K/mcL (140-400); Red Blood Count 3.04 M/mcL (4.19-5.50); Red Cell Distribution Width 14.5 % (11.5-14.5); White Blood Count 12.3 K/mcL (4.3-11.1)
[2019-11-28 05:45] LABS: BUN/Creatinine Ratio 30 (6-26); Blood Urea Nitrogen 25 mg/dL (8-23); Calcium 8.6 mg/dL (8.6-10.3); Carbon Dioxide 27 mEq/L (23-29); Chloride 105 mEq/L (98-107); Glucose 96 mg/dL (70-105); Osmolality,Calculated 288 (280-300); Potassium 4.3 mEq/L (3.5-5.1); Sodium 137 mEq/L (136-145); eGFR For African Americans > 60 (> 60); eGFR For Non-African Americans > 60 (> 60)
[2019-11-28] MEDS: Insulin LISPRO 300 UNITS/3 ML VIAL SQ SCH ×4 (08:21→20:26)
[2019-11-28] MEDS: Aspirin Enteric Coated 81 MG Tablet PO SCH (08:28)
[2019-11-28] MEDS: DilTIAZem CD (24hr) 240 MG CAP.ER.24H PO SCH (08:28)
[2019-11-28] MEDS: Linezolid 600 MG TABLET PO SCH ×2 (08:28→20:29)
[2019-11-28 13:49] LABS: Basophils # 0.1 K/mcL (0.0-0.2); Basophils % 0.6 %; Eosinophils # 0.2 K/mcL (0.0-0.6); Eosinophils % 1.3 %; Hematocrit 28.4 % (37.5-50.1); Hemoglobin 9.2 g/dL (12.9-16.9); Immature Granulocytes % 0.6 % (0-4); Lymphocytes # 1.9 K/mcL (0.6-4.6); Lymphocytes % 16.2 %; Mean Corpuscular HGB Conc 32.4 g/dL (31.6-35.5); Mean Corpuscular Hemoglobin 30.3 pg (28.0-33.3); Mean Corpuscular Volume 93.4 fL (83.0-100.0); Mean Platelet Volume 10.1 fL (9.4-12.4); Monocytes # 0.6 K/mcL (0.0-1.3); Neutrophils # 9.2 K/mcL (1.6-8.9); Platelet Count 379 K/mcL (140-400); Red Blood Count 3.04 M/mcL (4.19-5.50); Red Cell Distribution Width 14.4 % (11.5-14.5); Segmented Neutrophils % 76.3 %
[2019-11-28] MEDS: QUEtiapine Fumarate 25 MG TABLET PO SCH (20:29)
[2019-11-29] MEDS: Insulin LISPRO 300 UNITS/3 ML VIAL SQ SCH ×4 (08:58→20:12)
[2019-11-29] MEDS: DilTIAZem CD (24hr) 240 MG CAP.ER.24H PO SCH (09:13)
[2019-11-29] MEDS: Aspirin Enteric Coated 81 MG Tablet PO SCH (09:13)
[2019-11-29] MEDS: Linezolid 600 MG TABLET PO SCH ×2 (09:13→20:13)
[2019-11-29] MEDS ORDERED: *HR* HYDROcodone/Acet 5/325 mg TABLET PO ONE (11:09)
[2019-11-29] MEDS: Sucralfate 1 GM TABLET PO SCH ×3 (11:42→21:02)
[2019-11-29 13:28] LABS: Basophils # 0.1 K/mcL (0.0-0.2); Basophils % 0.7 %; Eosinophils # 0.2 K/mcL (0.0-0.6); Eosinophils % 1.7 %; Hematocrit 29.7 % (37.5-50.1); Hemoglobin 9.4 g/dL (12.9-16.9); Immature Granulocytes % 0.5 % (0-4); Lymphocytes # 2.1 K/mcL (0.6-4.6); Mean Corpuscular HGB Conc 31.6 g/dL (31.6-35.5); Mean Corpuscular Hemoglobin 30.1 pg (28.0-33.3); Mean Corpuscular Volume 95.2 fL (83.0-100.0); Mean Platelet Volume 9.9 fL (9.4-12.4); Monocytes # 0.6 K/mcL (0.0-1.3); Monocytes % 6.1 %; Neutrophils # 7.4 K/mcL (1.6-8.9); Platelet Count 417 K/mcL (140-400); Red Blood Count 3.12 M/mcL (4.19-5.50); Red Cell Distribution Width 14.6 % (11.5-14.5); White Blood Count 10.4 K/mcL (4.3-11.1)
[2019-11-29] MEDS: QUEtiapine Fumarate 25 MG TABLET PO SCH (20:13)
[2019-11-30 01:17] LABS: Basophils # 0.1 K/mcL (0.0-0.2); Basophils % 0.8 %; Eosinophils # 0.3 K/mcL (0.0-0.6); Hematocrit 25.2 % (37.5-50.1); Hemoglobin 8.2 g/dL (12.9-16.9); Immature Granulocytes % 0.4 % (0-4); Lymphocytes # 2.4 K/mcL (0.6-4.6); Lymphocytes % 25.9 %; Mean Corpuscular HGB Conc 32.5 g/dL (31.6-35.5); Mean Corpuscular Hemoglobin 30.7 pg (28.0-33.3); Mean Corpuscular Volume 94.4 fL (83.0-100.0); Mean Platelet Volume 9.9 fL (9.4-12.4); Monocytes # 0.6 K/mcL (0.0-1.3); Monocytes % 6.1 %; Neutrophils # 5.9 K/mcL (1.6-8.9); Platelet Count 338 K/mcL (140-400); Red Blood Count 2.67 M/mcL (4.19-5.50); Red Cell Distribution Width 14.2 % (11.5-14.5); Segmented Neutrophils % 63.8 %; White Blood Count 9.2 K/mcL (4.3-11.1)
[2019-11-30 01:41] LABS: BUN/Creatinine Ratio 27 (6-26); Blood Urea Nitrogen 36 mg/dL (8-23); Calcium 8.9 mg/dL (8.6-10.3); Carbon Dioxide 24 mEq/L (23-29); Chloride 106 mEq/L (98-107); Glucose 161 mg/dL (70-105); Osmolality,Calculated 298 (280-300); Phosphorous 4.1 mg/dL (2.7-4.5); Potassium 4.6 mEq/L (3.5-5.1); Sodium 138 mEq/L (136-145); eGFR For African Americans > 60 (> 60); eGFR For Non-African Americans 52 (> 60)
[2019-11-30] MEDS: Insulin LISPRO 300 UNITS/3 ML VIAL SQ SCH ×2 (07:35→11:21)
[2019-11-30 08:34] LABS: Hematocrit 25.8 % (37.5-50.1); Hemoglobin 8.4 g/dL (12.9-16.9)
[2019-11-30] MEDS: Sucralfate 1 GM TABLET PO SCH ×2 (08:44→11:13)
[2019-11-30] MEDS: Aspirin Enteric Coated 81 MG Tablet PO SCH (08:44)
[2019-11-30] MEDS: Linezolid 600 MG TABLET PO SCH (08:44)
[2019-11-30] MEDS: DilTIAZem CD (24hr) 240 MG CAP.ER.24H PO SCH (08:44)
[2019-11-30] MEDS ORDERED: 0.9 % Sodium Chloride 1,000 ML IVC SCH (08:45)
[2019-11-30] MEDS ORDERED: Cyanocobalamin (B-12) 1,000 MCG TABLET PO SCH (09:00)
[2019-11-30 10:51] VITALS: BP 103/64
[2019-11-30 12:43] LABS: Hematocrit 26.5 % (37.5-50.1); Hemoglobin 8.6 g/dL (12.9-16.9)
[2019-11-30 13:00] LABS: BUN/Creatinine Ratio 31 (6-26); Blood Urea Nitrogen 34 mg/dL (8-23); Calcium 9.2 mg/dL (8.6-10.3); Carbon Dioxide 25 mEq/L (23-29); Chloride 105 mEq/L (98-107); Glucose 92 mg/dL (70-105); Osmolality,Calculated 295 (280-300); Potassium 4.1 mEq/L (3.5-5.1); Sodium 139 mEq/L (136-145); eGFR For African Americans > 60 (> 60); eGFR For Non-African Americans > 60 (> 60)
[2019-11-30] MEDS ORDERED: *HR* HYDROcodone/Acet 5/325 mg TABLET PO ONE (13:07)
== END 2019-11-30 15:49 | DRG 393 ==
LOC: EMEROOARM 18:01 → 3BNU 18:01 → SUATTDRO 22:41 → 3BNU 23:32
PROVIDERS: ADMIT Internal Medicine; ATTEND Internal Medicine

== ENCOUNTER 2020-01-22 18:19 | Inpatient (IN) ==
[~2020-01-22 18:19] MED LIST: *HR* EPINEPHrine 1 MG/10 ML SYRINGE IVP ONE; Norepinephrine 4 MG/254 ML IV.SOLN IVC ONE
[2020-01-22] MEDS ORDERED: Ipratropium/Albuterol Neb 3 ML IH ONE (18:28)
[2020-01-22 18:42] LABS: Basophils # 0.1 K/mcL (0.0-0.2); Basophils % 0.4 %; Eosinophils # 0.2 K/mcL (0.0-0.6); Eosinophils % 1.2 %; Hematocrit 26.8 % (37.5-50.1); Hemoglobin 8.1 g/dL (12.9-16.9); Immature Granulocytes % 0.3 % (0-4); Lymphocytes # 1.1 K/mcL (0.6-4.6); Lymphocytes % 8.3 %; Mean Corpuscular HGB Conc 30.2 g/dL (31.6-35.5); Mean Corpuscular Hemoglobin 28.8 pg (28.0-33.3); Mean Corpuscular Volume 95.4 fL (83.0-100.0); Mean Platelet Volume 10.5 fL (9.4-12.4); Monocytes # 0.8 K/mcL (0.0-1.3); Monocytes % 5.7 %; Neutrophils # 11.3 K/mcL (1.6-8.9); Platelet Count 339 K/mcL (140-400); Red Blood Count 2.81 M/mcL (4.19-5.50); Red Cell Distribution Width 14.9 % (11.5-14.5); Segmented Neutrophils % 84.1 %; White Blood Count 13.4 K/mcL (4.3-11.1)
[2020-01-22 18:49] LABS: INR 1.2; Prothrombin Time 13.1 Seconds (9.4-12.1)
[2020-01-22 19:06] LABS: BUN/Creatinine Ratio 30 (6-26); Blood Urea Nitrogen 32 mg/dL (8-23); Calcium 9.7 mg/dL (8.6-10.3); Carbon Dioxide 22 mEq/L (23-29); Chloride 106 mEq/L (98-107); Glucose 180 mg/dL (70-105); Osmolality,Calculated 303 (280-300); Potassium 4.4 mEq/L (3.5-5.1); Sodium 141 mEq/L (136-145); eGFR For African Americans > 60 (> 60); eGFR For Non-African Americans > 60 (> 60)
[2020-01-22 19:11] LABS: Troponin I 0.33 ng/mL (< 0.04)
[2020-01-22] MEDS ORDERED: 0.9 % Sodium Chloride 250 ML IVC ONE (19:14)
[2020-01-22] MEDS ORDERED: Isovue-370 500 ML BOTTLE IVP ONE (19:15)
[2020-01-22] MEDS ORDERED: *HR* Heparin 5,000 UNIT/ML VIAL IVP ONE (19:39)
[2020-01-22] MEDS ORDERED: *HR* Heparin 5,000 UNIT/ML VIAL IVP PRN ×2 (19:39)
[2020-01-22] MEDS ORDERED: Heparin 25,000UNIT/250ML 1/2NS 25,000 UNIT/250 ML IV.SOLN IVC SCH (19:45)
[2020-01-22] MEDS ORDERED: 0.9 % Sodium Chloride 250 ML ONE (19:49)
[2020-01-22 19:52] LABS: Heparin anti-factor XA UFH < 0.04 IU/mL (0.30-0.70)
[2020-01-22 19:57] LABS: Adenovirus Not Detected (Not Detect); Coronavirus 229E Not Detected (Not Detect); Coronavirus HKU1 Not Detected (Not Detect); Coronavirus NL63 Not Detected (Not Detect); Coronavirus OC43 Not Detected (Not Detect)
[2020-01-22 19:59] LABS: Bordetella Pertussis Not Detected (Not Detect); Chlamydophila pneumoniae Not Detected (Not Detect); Human Metapneumovirus Not Detected (Not Detect); Human Rhinovirus/Enterovirus Not Detected (Not Detect); Influenza A Subtype 2009 H1 Not Detected (Not Detect); Influenza B Not Detected (Not Detect); Mycoplasma pneumoniae Not Detected (Not Detect); Parainfluenza Virus 1 Not Detected (Not Detect); Parainfluenza Virus 2 Not Detected (Not Detect); Parainfluenza Virus 3 Not Detected (Not Detect); Parainfluenza Virus 4 Not Detected (Not Detect); Respiratory Syncytial Virus Not Detected (Not Detect); SARS-CoV-2 Not Detected (Not Detect)
[2020-01-22] MEDS ORDERED: Piperacillin/Tazobactam 3.375 GM in Water for inj. (sterile) 20 ML IVP ONE (20:56)
[2020-01-22] MEDS ORDERED: 0.9 % Sodium Chloride 500 ML IVC ONE (21:01)
[2020-01-22] MEDS ORDERED: QUEtiapine Fumarate 25 MG TABLET PO SCH (23:30)
[2020-01-23] MEDS ORDERED: *HR* FentaNYL (PF) 100 MCG/2 ML VIAL ONE (00:14)
[2020-01-23 01:03] LABS: ABG Base Excess -17 mEq/L (-2 to 3); ABG HCO3 14 mEq/L (21-27); ABG Oxygen Saturation 98 % (95-98); ABG PCO2 56 mmHg (35-45); ABG PH 6.99 pH Units (7.32-7.45); ABG PO2 146 mmHg (85-104); ABG TCO2 15 mEq/L (20-26); Blood Gas Modality ASSIST CONTROL; Blood Gas VT 450 cc
[2020-01-23] MEDS ORDERED: Sodium Bicarbonate 50 MEQ/50 ML VIAL IVP ONE (01:03)
[2020-01-23] MEDS: FentaNYL (PF) 1,000 MCG/100 ML IV.SOLN IVC SCH ×2 (01:52→15:46)
[2020-01-23] MEDS ORDERED: Artificial Tears SOLN 15 ML BOTTLE BOTH EYES PRN (01:57)
[2020-01-23] MEDS ORDERED: Naloxone 0.4 MG/ML INJ IVP PRN (01:57)
[2020-01-23 03:08] LABS: ABG Base Excess -9 mEq/L (-2 to 3); ABG HCO3 19 mEq/L (21-27); ABG Oxygen Saturation 95 % (95-98); ABG PCO2 48 mmHg (35-45); ABG PO2 96 mmHg (85-104); ABG TCO2 20 mEq/L (20-26); Blood Gas Modality ASSIST CONTROL; Blood Gas VT 520 cc
[2020-01-23] MEDS: Chlorhexidine Rinse 15 ML MOUTHWASH MM SCH ×2 (04:00→07:43)
[2020-01-23 04:33] LABS: ABG Base Excess -8 mEq/L (-2 to 3); ABG HCO3 19 mEq/L (21-27); ABG Oxygen Saturation 96 % (95-98); ABG PCO2 44 mmHg (35-45); ABG PH 7.23 pH Units (7.32-7.45); ABG PO2 97 mmHg (85-104); ABG TCO2 20 mEq/L (20-26); Blood Gas Modality ASSIST CONTROL; Blood Gas VT 450 cc
[2020-01-23] MEDS ORDERED: Dextrose Gel 15 GM/37.5 ML TUBE PO PRN ×2 (04:45)
[2020-01-23] MEDS ORDERED: *HR* Dextrose 50 % in Water (Vial) 50 ML VIAL IVP PRN (04:45)
[2020-01-23] MEDS ORDERED: D5% in Water 1,000 ML IVC PRN (04:45)
[2020-01-23] MEDS: Norepinephrine 4 MG/254 ML IV.SOLN IVC SCH ×3 (05:07→16:51)
[2020-01-23] MEDS: Artificial Tears SOLN 15 ML BOTTLE BOTH EYES SCH ×4 (05:21→15:40)
[2020-01-23 05:38] LABS: INR 1.3; Prothrombin Time 14.2 Seconds (9.4-12.1)
[2020-01-23 05:52] LABS: Albumin 3.4 g/dL (3.5-5.7); Albumin/Globulin Ratio 1.1 (1.1-2.2); Bilirubin,Direct 0.1 mg/dL (0.0-0.2); Bilirubin,Indirect 0.3 mg/dL (0.0-1.0); Bilirubin,Total 0.4 mg/dL (0.3-1.0); Calcium 8.9 mg/dL (8.6-10.3); Globulin 3.2 g/dL (2.4-3.5); Magnesium 1.8 mg/dL (1.6-2.6); Phosphorous 8.6 mg/dL (2.7-4.5); Potassium 4.8 mEq/L (3.5-5.1); Total Protein 6.6 g/dL (6.4-8.9)
[2020-01-23 05:56] LABS: Red Cell Distribution Width 15.3 % (11.5-14.5)
[2020-01-23 05:57] LABS: Basophils % 0.1 %; Hematocrit 24.9 % (37.5-50.1); Hemoglobin 7.4 g/dL (12.9-16.9); Immature Granulocytes % 1.1 % (0-4); Lymphocytes # 1.1 K/mcL (0.6-4.6); Lymphocytes % 3.8 %; Mean Corpuscular HGB Conc 29.7 g/dL (31.6-35.5); Mean Corpuscular Hemoglobin 29.6 pg (28.0-33.3); Mean Corpuscular Volume 99.6 fL (83.0-100.0); Mean Platelet Volume 10.6 fL (9.4-12.4); Monocytes # 2.3 K/mcL (0.0-1.3); Platelet Count 349 K/mcL (140-400); White Blood Count 28.7 K/mcL (4.3-11.1)
[2020-01-23] MEDS ORDERED: Ringers Solution, Lactated 1,000 ML IVC ONE ×2 (05:59→09:21)
[2020-01-23] MEDS: Insulin LISPRO 300 UNITS/3 ML VIAL SQ SCH ×2 (06:02→12:37)
[2020-01-23] MEDS ORDERED: Perflutren Lipid Microsphere 1.3 ML in 0.9 % Sodium Chloride 8.7 ML IVP PRN (06:21)
[2020-01-23] MEDS ORDERED: Pantoprazole 40 MG VIAL IVP SCH (06:30)
[2020-01-23] MEDS: Piperacillin/Tazobactam 3.375 GM in 0.9 % Sodium Chloride Mini Bag 100 ML IVPB SCH ×2 (07:42→15:39)
[2020-01-23] MEDS ORDERED: Isovue-370 500 ML BOTTLE IVP ONE (09:42)
[2020-01-23] MEDS ORDERED: Midazolam HCl 50 MG/100 ML IV.SOLN IVC SCH (09:45)
[2020-01-23] MEDS ORDERED: Calcium Chloride 2,000 MG in 0.9 % Sodium Chloride 100 ML IVPB ONE (10:30)
[2020-01-23] MEDS ORDERED: Aspirin 81 MG TAB.CHEW PO SCH (11:45)
[2020-01-23] MEDS ORDERED: 0.9 % Sodium Chloride 250 ML ONE (12:23)
[2020-01-23 15:55] LABS: Albumin 3.1 g/dL (3.5-5.7); Albumin/Globulin Ratio 1.1 (1.1-2.2); Bilirubin,Direct 0.1 mg/dL (0.0-0.2); Bilirubin,Indirect 0.2 mg/dL (0.0-1.0); Bilirubin,Total 0.3 mg/dL (0.3-1.0); Globulin 2.8 g/dL (2.4-3.5); Total Protein 5.9 g/dL (6.4-8.9)
[2020-01-23] MEDS ORDERED: *HR* LORazepam 2 MG/ML VIAL IVP PRN (17:01)
[2020-01-23] MEDS ORDERED: Scopolamine Patch 1.5 MG PATCH.TD72 TD SCH (17:15)
[2020-01-23] MEDS ORDERED: Nystatin POWDER 30 GM BOTTLE TP SCH (21:00)
[2020-01-24] MEDS: FentaNYL (PF) 1,000 MCG/100 ML IV.SOLN IVC SCH ×3 (01:06→17:16)
[2020-01-24] MEDS ORDERED: *HR* LORazepam 2 MG/ML VIAL IVP PRN (05:50)
[2020-01-24] MEDS ORDERED: *HR* FentaNYL (PF) 100 MCG/2 ML VIAL IVP PRN (09:56)
[2020-01-24] MEDS: *HR* LORazepam 2 MG/ML VIAL IVP SCH ×3 (12:07→20:19)
[2020-01-24] MEDS: Atropine Sulfate 1% 40 DROP/2 ML BOTTLE SL PRN (21:07)
[2020-01-25] MEDS: FentaNYL (PF) 1,000 MCG/100 ML IV.SOLN IVC SCH (02:45)
[2020-01-25] MEDS: Atropine Sulfate 1% 40 DROP/2 ML BOTTLE SL PRN (02:48)
[2020-01-25] MEDS: *HR* LORazepam 2 MG/ML VIAL IVP SCH ×3 (04:02→09:51)
[2020-01-25 07:29] VITALS: BP 80/66
[2020-01-25] MEDS ORDERED: Glycopyrrolate 0.2 MG/ML VIAL IVP ONE (09:08)
[2020-01-26] MEDS ORDERED: Scopolamine Patch 1.5 MG PATCH.TD72 TD SCH (17:15)
== END 2020-01-25 12:37 | disposition expired | DRG 871 ==
LOC: 3BNU 18:19 → EMEROOARM 18:19 → ICNU 01-23 00:20 → SUATTDRO 01-23 01:57 → 2ANU 01-24 05:40
PROVIDERS: ADMIT Student in an Organized Health Care Education/Training Program; ATTEND Student in an Organized Health Care Education/Training Program